=== PATIENT | female | born 1960 | race Caucasian/White ===

== ENCOUNTER 2016-08-28 05:29 | Outpatient (CLI) | payer OTHER ==
[~2016-08-28] VITALS: Ht 162.6 cm; Wt 74.7 kg
--- NOTE | ~2016-08-28 | CATH ---
Cardiac Diagnostic Report Demographics Patient Name MAISHA Knowles Gender Female Date of 1960 Age 56 year(s) Patient Number [id number] Date of Study 08/28/2016 Visit Number [id number] Room Number G6399 [place] [id number] Ht 162.56 cm Wt 74.7 kg Referring Fatuma Madison Cantu MD Primary Physician Physician Performing Fam Ballard MD Secondary Physician Physician Diagnostic Fam Ballard MD Assisting Physician Physician Interventional Physician Development Director Physician Findings and Conclusions Diagnostic Findings and Conclusion Non-obstructive CAD Normal LV function with 4+ MR Diagnostic Recommendations Will review for Mitral Clip Procedure Description The patient was brought to the diagnostic cardiac catheterization-EP laboratory in the fasting, non-sedated state. Informed consent was obtained in the written and verbal form after the risks and benefits were explained. The patient had no further questions and agreed to proceed. The planned puncture-incision site(s) were shaved and prepped with ChloraPrep and draped in the usual sterile manner. Conscious sedation, supplemental oxygen, and pain control medications were delivered by a registered nurse under physician guidance. Surface ECG rhythm, blood pressure measurement, and pulse oximetry were monitored throughout the procedure. Arterial access. The access site was infiltrated with lidocaine. The vessel was entered with the Seldinger technique. A sheath was advanced into the vessel and used for catheter placement. Venous access. The access site was infiltrated with 2% lidocaine. The vessel was entered with the Seldinger technique. A sheath was advanced into the vessel and used for catheter placement. Selective left coronary angiography. A catheter was advanced into the left coronary vessel ostium under Fluoroscopic guidance. Contrast was injected by hand. Images were obtained in multiple projections. Selective right coronary angiography. A catheter was advanced into the right coronary vessel ostium under fluoroscopic guidance. Contrast was injected by hand. Images were obtained in multiple projections. Left heart catheterization. A catheter was advanced across the aortic valve to the left ventricle under fluoroscopic guidance. Resting hemodynamics were obtained. Right heart catheterization. A [place] Luis catheter was successfully advanced to the right atrium, right ventricle, pulmonary artery, and pulmonary artery wedge position under fluoroscopic guidance. Resting hemodynamics were obtained. Measurements included pressures, arterial and venous oxygen saturation samples, and cardiac output. The [place] was removed without difficulty. Arterial and Venous hemostasis was achieved. The patient was transferred to a regular nursing floor via cart accompanied by a nurse. The patient left the laboratory in stable condition. Diagnostic Cath Status: Elective Procedure Procedure Type Diagnostic procedure:Angiography:, Right and Left Heart Cath, Coronary Angios Indications: Mitral Regurgation. The procedure was explained in detail to the patient. Risks, complications and alternative treatments were reviewed. Written consent was obtained. Medications Reviewed with Patient prior to Procedure. Angiographic Findings Dominance: Right Cardiac Arteries and Lesion Findings LMCA: Normal (0% Stenosis).The LMCA is a short, large caliber vessel. LAD: Normal (0% Stenosis).The LAD is a medium caliber vessel. The 1st Diag is a small caliber vessel. The 1st Diag appears normal. The 2nd Diag is a small caliber vessel. The 2nd Diag appears normal. The 3rd Diag is a small caliber vessel. The 3rd Diag appears normal. LCx: Normal (0% Stenosis).Large caliber vessel. The 1st ob Nishi is a small caliber vessel. The 1st ob Nishi appears normal. The 2nd ob Nishi is a large caliber vessel. The 2nd ob Nishi appears normal. RCA: Normal (0% Stenosis).Medium caliber vessel. Procedure Data Procedure Date Date: 08/28/2016Start: 08:12 AMEnd: 09:02 AM Entry Locations - Retrograde Percutaneous access was performed through the Right Femoral artery (Primary location). A 6 Fr sheath was inserted. Hemostasis was successfully obtained using Angio-Seal STS PLUS ([place]). Closure Comments: Annika placement. - Antegrade Percutaneous access was performed through the Right Femoral vein. A 7 Fr sheath was inserted. Hemostasis was successfully obtained using Manual Compression. Closure Comments: Annika. Procedure Medications Order and Administration + + + +-------+ !Time !Medication !Dosage !Route ! + + + +-------+ !08/28/2016 08:08 AM !Fentanyl !50 mcg !I.V. ! + + + +-------+ !08/28/2016 08:26 AM !Versed !1 mg ! ! + + + +-------+ !08/28/2016 08:33 AM !Oxygen !2 l/min !NC ! + + + +-------+ Devices Used - A6 Fr. BS Angled Pigtail Diag. Catheterwas used for:LV Pressures. - A6 Fr. BS JL 4 Diag. Catheterwas used for:Left coronary angiography. - A6 Fr. BS JR 4 Diag. Catheterwas used for:Right coronary angiography. Contrast Material - Isovue 35085 ml Fluoroscopy Time: Diagnostic: 6:18 minutes. Total: 6:18 minutes. Fluoroscopy Dose: Diagnostic: 457 mGy. Total: 457 mGy. Estimated Blood Loss: 3 ml. Medical History Performed Procedures and Imaging Results - No ACC stress or imaging studies were performed. Allergies - Other:(nickel). Risk Factors The patient risk factors include:last creatinine: 1.4 mg/dl and creatinine clearance: 51.65 ml/min. Admission Data Admission Date: 08/28/2016 Admission Time: 05:29 AM Admit Source: Other Insurance Payors: Private health insurance. Clinical Evaluation Leading to Procedure - There were no CAD presentation symptoms. - There were no anginal symptoms. VA LV function assessed as:Normal. Ejection Fraction - 06/11/2016 - Method: Echocardiography. EF%: 70. - 05/21/2016 - Method: Echocardiography. EF%: 70. - 08/28/2016 - Method: LV gram. EF%: 60. LVA Segment Contractility 1 - Normal 3 - Mild 5 - Severe 7 - Dyskinesis hypokinesis hypokinesis 2 - 4 - Moderate 6 - Akinesis 8 - Aneurysm Hypokinesis hypokinesis Hemodynamics Condition: Rest O2 Consumption: Estimated: 172.92Heart Rate: 72 bpm Oxygen Saturation +--------+-----+----+ +---+ + !Location!pCO2 !pO2 !% Saturation !Hgb!O2 Content ! +--------+-----+----+ +---+ + !RA ! ! !60.4 ! ! ! +--------+-----+----+ +---+ + !IVC ! ! !71.1 ! ! ! +--------+-----+----+ +---+ + !FA ! ! !91.4 ! ! ! +--------+-----+----+ +---+ + !PA ! ! !62.9 ! ! ! +--------+-----+----+ +---+ + Pressures (mmHg) +-----+ + !Site !Pressure ! +-----+ + !RA !13/9 (9) ! +-----+ + !RV !38/4 ,11 ! +-----+ + !PCW !18 (22) ! +-----+ + !PA !47/18 (29) ! +-----+ + !LV !143/1 ,12 ! +-----+ + !LV !136/4 ,11 ! +-----+ + !LV !130/3 ,10 ! +-----+ + !PCW !/44 (29) ! +-----+ + !LV !129/2 ,11 ! +-----+ + !AO !129/70 (95) ! +-----+ + !LV !130/2 ,20 ! +-----+ + Cardiac Output + + +-----+ !Time !Cardiac Output (l/min) !Use ! + + +-----+ !08/28/2016 08:41 AM !3.31 !True ! + + +-----+ !08/28/2016 08:41 AM !3.47 !True ! + + +-----+ !08/28/2016 08:42 AM !3.39 !True ! + + +-----+ !08/28/2016 08:42 AM !3.22 !True ! + + +-----+ !08/28/2016 08:43 AM !3.55 !True ! + + +-----+ Cardiac Output +-------+ + + + !Method !CO (l/min) !CI (l/min/m2) !SV (ml) ! +-------+ + + + !Gardenia !3.35 !1.9 !46.63 ! +-------+ + + + !Thermal!3.388 !1.9 !49.53 ! +-------+ + + + Valve Gradients and Areas + +--------+--------+--------+---------+ + + !Valve !Peak !Mean !Area !Index !Flow !Source ! + +--------+--------+--------+---------+ + + !Aortic !1 !0 ! ! !180.59 !Gardenia ! + +--------+--------+--------+---------+ + + !Aortic !1 !0 ! ! !182.64 !Thermal ! + +--------+--------+--------+---------+ + + Shunts Oxygen Values O2 Capacity 180.88 O2 Consumption 172.92 Flows (l/min) Qs 3.08 Vascular Resistance (dynes x sec x cm-5) + +-----+-----+----+----+---------+-------+ !CO method !TSVR !SVR !TPVR!PVR !TPVR/TSVR!PVR/SVR! + +-----+-----+----+----+---------+-------+ !Gardenia !28.27!25.74!8.67!0.04!0.31 ! ! + +-----+-----+----+----+---------+-------+ !Thermal !27.96!25.45!8.57!0.04!0.31 ! ! + +-----+-----+----+----+---------+-------+ !Qp or Qs !30.75!27.99! ! ! ! ! + +-----+-----+----+----+---------+-------+ Discharge Data Discharge Date: 08/28/2016 Hospital Status: Outpatient Signatures dtt: Elio Otto (cardio) dtd: 08/28/16 0812 Physician Self Edit
[~2016-08-28 05:29] MED LIST: ASCORBIC ACID500 MG PO; CITRACAL+D(315M1 TAB PO; EXCEDRIN EXTRA1 TAB PO; MAALOX LIQ UNIT30 ML PO; PENICILLIN V P500 MG PO; PRILOSEC OTC20 MG PO; [UNRECOGNIZED DRUG - OTHER] PO
== END 2016-08-28 12:30 | disposition disaster alternative care site (69) ==
LOC: GCAT 05:29 → GPCU 05:29 → GPOC 06:00 → GCAT 12:30 → GPOC 13:00
PROC: 4A023N8 Measurement of Cardiac Sampling and Pressure, Bilateral, Percutaneous Approach (ICD-10-PCS; principal; 2016-08-28)
PROC: B2111ZZ Fluoroscopy of Multiple Coronary Arteries using Low Osmolar Contrast (ICD-10-PCS; principal; 2016-08-28)
DX: I34.0 Nonrheumatic mitral (valve) insufficiency (principal); I34.1 Nonrheumatic mitral (valve) prolapse; K21.9 Gastro-esophageal reflux disease without esophagitis; Z78.0 Asymptomatic menopausal state; E66.9 Obesity, unspecified; Z68.25 Body mass index [BMI] 25.0-25.9, adult; Z79.82 Long term (current) use of aspirin; Z79.899 Other long term (current) drug therapy
CPT/HCPCS: C1760; J1644; J2001; J2250; J3010; J7060

== ENCOUNTER → 2016-10-16 | Outpatient (CLI) | payer OTHER ==
[~2016-10-16] MED LIST changes: +ALDACTONE25 MG PO; +AMOXICILLIN500 MG PO; +CIPRO500 MG PO; +COLACE100 MG PO; +CORDARONE,PACE200 MG PO; +ECOTRIN325 MG PO; +K-TAB 10MEQ10 MEQ PO; +LASIX40 MG PO; +LOPRESSOR25 MG PO; +NORCO 5-325 TA1 EACH PO; +PROAMATINE5 MG PO; +PROVENTIL OR V6.7 GM INH; +TOPROL XL25 MG PO; +TYLENOL325 MG PO; +VANCO 750750 MG/250 IVP; +XARELTO15 MG PO
== END | disposition disaster alternative care site (69) ==
LOC: GRAD 09:37
DX: Z01.810 Encounter for preprocedural cardiovascular examination (principal); I34.0 Nonrheumatic mitral (valve) insufficiency; I51.7 Cardiomegaly; Q67.6 Pectus excavatum

== ENCOUNTER 2017-01-12 11:21 | Inpatient (IN) | payer OTHER ==
[~2017-01-12] VITALS: Ht 162.6 cm; Wt 76.9 kg
--- NOTE | ~2017-01-12 | ENPV ---
Carotid Duplex Study Demographics Patient Name NYA FERRERA Date of Study 01/12/2017 Patient Number [id number] Gender Female Date of 1960 Age 56 Visit Number [id number] Height Accession Number [id number] Weight Room Number BSA BMI Referring Poncho Guerrero DO Interpreting Kendrick Starkey MD Physician Physician Physician Ordering Physician Poncho Guerrero [employer] Employee DO Molder Inflated Ball Robinson Holt BS, RT Conclusions Summary The right internal carotid artery has mild, 1-39%, plaque and stenosis. The right vertebral artery is present with antegrade flow. The left internal carotid artery has mild, 1-39%, plaque and stenosis. The left vertebral artery is present with antegrade flow. Diminished flow in the left vertebral artery. Procedure Type of Study: Cerebral:Carotid, Carotid Doppler Bilateral. Indications for Study:Pre op heart valve surgery. Allergies - Other:(nickel). Patient Status:Routine. Study Location:Vascular Lab. Technical Quality:Adequate visualization. Velocities are measured in cm/s ; Diameters are measured in cm Carotid Right Measurements Carotid Left Measurements + +--------+--------+ + + + +--------+ --------+ + + !Location !PSV !EDV !Angle !%Stenosis ! !Location !PSV ! EDV !Angle !%Stenosis ! + +--------+--------+ + + + +--------+ --------+ + + !Prox CCA !144 !28 !60 ! ! !Prox CCA !30 ! !60 ! ! + +--------+--------+ + + + +--------+ --------+ + + !Dist CCA !101 !28 !60 ! ! !Dist CCA !112 ! 24 !60 ! ! + +--------+--------+ + + + +--------+ --------+ + + !Prox ICA !71 !31 !60 ! ! !Prox ICA !72 ! 32 !60 ! ! + +--------+--------+ + + + +--------+ --------+ + + !Dist ICA !80 !25 !60 ! ! !Dist ICA !105 ! 42 !60 ! ! + +--------+--------+ + + + +--------+ --------+ + + !Prox ECA !108 ! !60 ! ! !Prox ECA !105 ! !60 ! ! + +--------+--------+ + + + +--------+ --------+ + + !Vertebral !20 ! !60 ! ! !Vertebral !89 ! !60 ! ! + +--------+--------+ + + + +--------+ --------+ + + !Subclavian !142 ! !60 ! ! !Subclavian !127 ! !60 ! ! + +--------+--------+ + + + +--------+ --------+ + + - There is antegrade vertebral flow noted on the right side. - There is antegrade verte bral flow noted on the left side. - Add'l Measurements:ICAPSV/CCAPSV 0.55.ICAEDV/CCAEDV 1.14. - Add'l Measurements:ICAPS V/CCAPSV 3.51. Signature dtt: DARWIN CANAS: 01/12/17 1140 Physician Self Edit
--- NOTE | ~2017-01-12 | DS ---
PATIENT'S NAME: NYA FERRERA [facility] AGE: 56 Y [address] ROOM: [address] [place], [place] [address] LOCATION: GPCU ADMIT DATE: 01/13/2017 Discharge Summary DISCHARGE DATE: 01/19/2017 FAMILY PHYSICIAN: Madison Burris MD ATTENDING PHYSICIAN: Oliver Fall HOSPITAL COURSE: The patient is a 56-year-old white female with a known mitral valve regurgitation, secondary to prolapse as well as flail segment of P2 and scallop of the posterior leaflet. She was seen in consultation with regard to undergoing repair and possible replacement. The patient consented to the procedure and on January 13, 2017 she presented to the operative suite with Dr. Fall for a mitral valve repair with quadrangular resection and annuloplasty ring. She tolerated the surgery without complication. She transferred to the ICU following surgery. She extubated on the same operative day. On postoperative day 1, the patient was found stable for transfer to PCU. Her lines therefore were discontinued and her drips were off. We were able to get rid of her Yoon catheter and chest tubes on the 2nd postoperative day. The patient worked with cardiac rehab for strengthening purposes. Respiratory personal monitored the patient as well. The patient was requiring oxygen throughout the hospital stay. The patient had no runs of atrial fibrillation. She had no healing complications. As the time for discharge grew near, we did do a trend oximetry and found that the patient required O2 at night at 2 L. In addition, Care Management worked with the patient to see if there were any needs at the time of discharge. The patient indicated that she was going to stay with her [id number] in [place] for a week or 2 until she was feeling better. She indicated that her works and would not be able to be around to help. DISCHARGE ORDERS: Included a diet as previous. Activity levels that require no pushing, pulling, or lifting heavier than 10 pounds until February 24, 2017. We asked the patient to work with cardiac rehab who will be contacting the patient for outpatient therapy. She is to utilize oxygen at 2 L at night. Appointments were made for her to follow up with Dr. Fall and Dr. Otto in 2 weeks on the same day. FINAL DIAGNOSES: Include mitral regurgitation and nocturnal hypoxia. DISCHARGE MEDICATIONS: Include: 1. Calcium with vitamin D 2 tablets daily. 2. Women's One-a-Day tablets daily. 3. Vitamin C 500 mg daily. 4. Prilosec 40 mg daily. 5. Maalox liquid 10 mL p.r.n. at h.s. 6. Excedrin Extra Strength 2 tablets q.6 h. p.r.n. 7. Pen-Vee K 500 mg 1 hour prior to dental visit. PATIENT'S NAME: NYA FERRERA [facility] AGE: 56 Y [address] ROOM: [address] [place] [address] [facility] ADMIT DATE: 01/13/2017 Discharge Summary DISCHARGE DATE: 01/19/2017 FAMILY PHYSICIAN: Madison Burris MD ATTENDING PHYSICIAN: Oliver Fall 8. Amiodarone 200 mg twice a day. 9. Ecotrin 325 mg daily. 10. Colace 100 mg twice a day. 11. Lasix 40 mg daily. 12. Potassium 20 mEq twice a day. 13. [place] 5/325 1 to 2 every 4 to 6 hours as needed. The patient verbalizes understanding of the discharge orders. The patient is discharged to her [facility] in [place] in stable condition. MADELIN WARE APRN FOR OLIVER FALL DO DLQ/modl /[id number] d: 02/04/17 0249 t: 02/05/17 1444, DISCHARGE SUMMARY
--- NOTE | ~2017-01-12 | OR ---
PATIENT'S NAME: NYA DEL REAL [facility] AGE: 56 Y [address] ROOM: [id number] [address] LOCATION: [facility] ADMIT DATE: 01/13/2017 OR/Procedure Report DISCHARGE DATE: FAMILY PHYSICIAN: Madison Burris MD ATTENDING PHYSICIAN: Oliver Isaac SURGEON: Oliver Isaac DO SIGN LANGUAGE INTERPRETER: DATE OF PROCEDURE: 01/13/2017 PREOPERATIVE DIAGNOSIS: Severe mitral valve regurgitation secondary to prolapse and flail segment of P2 scallop of posterior leaflet. POSTOPERATIVE DIAGNOSIS: Severe mitral valve regurgitation secondary to prolapse and flail segment of P2 scallop of posterior leaflet. PROCEDURE: Mitral valve repair with quadrangular resection and annuloplasty ring. BRIEF HISTORY: Ms. Del Real is a 56-year-old white female with above-noted diagnosis, has been brought to the operative suite today after informed consent was obtained for repair of her mitral valve. DESCRIPTION OF PROCEDURE: She was sterilely prepped and draped in usual fashion for sternotomy. A sternal incision was made and the sternum was divided in midline with a sternal saw. Electrocautery was used for hemostasis along the ostium, along the marrow, and sternal edges. The pericardium was opened and the pericardial well was created. Cannulation sutures were then placed in the ascending aorta. The superior vena cava and the right atrium inferior vena caval junction for bypass and cardioplegia cannulas and the patient was cannulated and connected to bypass pump without difficulty. Heparin had been given. ACT was adequate. Cross-clamp was applied. Antegrade and retrograde cardioplegia was given and the heart arrested without difficulty. The inner atrial groove was dissected and we entered the left atrium just above the right superior pulmonary vein, extended our incision inferiorly and superiorly, and placed our retractor. The mitral valve apparatus was easily visualized, the posterior leaflet and its prolapse and flail segment of P2 was easily identified. The anterior leaflet appeared normal. There was some redundancy, however, this was not significant. The quadrangular resection of the P2 segment was performed. We then reapproximated the leaflet with 4-0 Ethibond and then sized the anterior leaflet and placed a 26 ring. This was done with 2-0 Ethibond sutures. Once this was completed, the ring was secured into position. Of note, retrograde cardioplegia was given on a 10-minute basis. We then placed a right superior pulmonary vein cannula with its tip across the mitral valve into the left ventricle. We then closed the atriotomy with running 3-0 pledgeted Prolene PATIENT'S NAME: NYA DEL REAL [facility] AGE: 56 Y [address] ROOM: [place] [address] LOCATION: GICU ADMIT DATE: 01/13/2017 OR/Procedure Report DISCHARGE DATE: FAMILY PHYSICIAN: Madison Burris MD ATTENDING PHYSICIAN: Oliver Isaac and placed the patient in a deep Trendelenburg position and performed de- airing maneuvers. Once full de-airing maneuvers were undertaken under MOLINA guidance, the cross-clamp was removed. Any further de-airing maneuvers were undertaken under MOLINA guidance. There was minimal air noted with initial removal of the crossclamp. Two atrial and one ventricular temporary pacemaking wires were placed. The patient did require atrial pacing at 80. Warm blood was now given and after 500 mL dose was given, it was discontinued. The right superior pulmonary venous vent and a retrograde cannula were removed. Ventilations were initiated and we weaned from cardiopulmonary bypass without difficulty. The inferior vena caval cannula was removed as well as the superior vena caval cannula. This appropriate volume was returned from the pump to the patient and an ascending aortic cannula and a cervical root vent were removed. Protamine was now given. Copious amounts of antibiotic-infused saline was used to irrigate the sternum and mediastinum. A ventricular wire was placed and four chest tubes were placed; one in each pleural cavity, one in anterior mediastinal space, and one in posterior pericardial space. Copious amounts of antibiotic-infused saline was used to irrigate the sternum and mediastinum. Platelet-derived growth factor was infused into the sternum and mediastinum and the sternum was approximated with ZipFix system. We then irrigated the soft tissues again with antibiotic- infused saline, then closed these in layered fashion. All sponge, instrument, and needle counts were correct. The patient was transferred to the intensive care unit in stable condition. DO KATHY BAILEY/modl /[id number] CC: MD Elio Galeas MD d: 01/13/17 2123 t: 01/14/17 1450, OPERATIVE SUMMARY
--- NOTE | ~2017-01-12 | OR ---
PATIENT'S NAME: NYA FERRERA [facility] AGE: 56 Y [address] ROOM: [address] [place], [place] [address] LOCATION: GICU ADMIT DATE: 01/13/2017 OR/Procedure Report DISCHARGE DATE: FAMILY PHYSICIAN: Madison Burris MD ATTENDING PHYSICIAN: Oliver Isaac SURGEON: Nathan Ruiz MD GALLEY HAND: DATE OF PROCEDURE: 01/13/2017 PROCEDURES: 1. Right radial arterial line. 2. Right central venous catheter. 3. Transesophageal echocardiography. INDICATIONS: The patient has severe mitral regurgitation, undergoing mitral valve repair versus replacement. PROCEDURE #1: The patient was identified, time-out in the preoperative holding. She wished to proceed with the procedures. She was given 2 mg of Versed and the right arm was extended out about 90 degrees. Radial artery was easily palpated. Area was cleaned with chlorhexidine 2%. Next, using a Seldinger technique, a 20-gauge Arrow catheter was inserted with a single stick. Bright red pulsatile blood was found on return. The catheter was placed without difficulty and secured into place. Complications, none. Blood loss, none. PROCEDURE #2: After induction of general anesthesia, the patient was lying supine on the operating room table in slight Trendelenburg position. The right neck was prepped with chlorhexidine 2% and maximal sterile barriers worn at all times. Ultrasound was then used to visualize the internal jugular vein and an introducer needle placed with a single stick, returning dark nonpulsatile blood. The wire was threaded and the ultrasound was used to visualize the wire in the internal jugular vein. Next, a 9-Pashto 10 cm introducer catheter was placed over the wire. The wire removed. All ports withdrew, blood flushed easily, it was secured into place. Then, a Walton-Luis catheter was floated into position and secured at about 40 to 45 cm. Complications, none. Blood loss, none. PROCEDURE #3: After induction of anesthesia and placement of lines, the transesophageal probe was placed atraumatically. Please see saved images and report for further details. The patient showed no significant atheromatous disease in the ascending aorta or arch. There are no pericardial effusions. No PFO, ASD, or VSD, which was likely she had a preserved ejection fraction with a flail P2 segment. There is no aortic valve sclerosis, stenosis, or regurgitation, and it was trileaflet. At the conclusion of the surgery, there PATIENT'S NAME: NYA FERRERA [facility] AGE: 56 Y [address] ROOM: [address] [place], [place] [address] LOCATION: [facility] ADMIT DATE: 01/13/2017 OR/Procedure Report DISCHARGE DATE: FAMILY PHYSICIAN: Madison Burris MD ATTENDING PHYSICIAN: Oliver Isaac was trace regurgitation with the vena contracta was 0.3. I did not recall the gradients at this time, but I think it was 4. There was no perivalvular leaks or stenotic valve, and appeared to have preserved ejection fraction. NATHAN RUIZ MD JJP/modl /[id number] d: 01/13/17 1851 t: 01/19/17 1603, OPERATIVE SUMMARY
--- NOTE | ~2017-01-12 | CON ---
PATIENT'S NAME: NYA FERRERA [facility] AGE: 56 Y [address] ROOM: [place] [address] LOCATION: GICU ADMIT DATE: 01/13/2017 Consultation DISCHARGE DATE: FAMILY PHYSICIAN: Madison Burris MD ATTENDING PHYSICIAN: Oliver Isaac DATE OF CONSULTATION: 01/13/2017 REFERRING PHYSICIAN: Oliver Isaac DO Consulting Physician: Yaneth Mcdowell DPM This is a consult from Dr. Isaac for evaluation of right hallux with elongated toenail. CHIEF COMPLAINT: Right hallux, elongated onychomycotic nail, early ramiform formation causing early pressure, concern for pressure sore, 2nd toe. HISTORY OF PRESENT ILLNESS: Nya is a 56-year-old female, who had repair of mitral valve prolapse today. It was noted that on the right big toe, the nail was elongated, thick, and growing into her 2nd toe. She does not recall exactly how long that has been there, but it has been there for at least several months where the nail continues to grow extended. She had injury to that many years ago and the nail has been always a little bit strange since that time. Most of her pain obviously right now is from the heart surgery. There was discomfort in that area as well. MEDICATION LIST: Medications reviewed per chart. SOCIAL HISTORY: She is . No children. Works at [employer]. Resides in [place]. Denies smoking or alcohol. Occasional caffeine usage. REVIEW OF SYSTEMS: Related to the current past medical history and it is difficult at this point because of just having had surgery. She does have pain of course from the surgical procedure and otherwise outside of the current problems and concerns, review of systems are negative. Reviewed per chart. PAST MEDICAL HISTORY: Denies diabetes, obviously problems with her heart for which she has had a recent surgery today. FAMILY HISTORY: There are heart problems in her mom and dad. PATIENT'S NAME: NYA FERRERA [facility] AGE: 56 Y [address] ROOM: [id number] [place] [address] LOCATION: GICU ADMIT DATE: 01/13/2017 Consultation DISCHARGE DATE: FAMILY PHYSICIAN: Madison Burris MD ATTENDING PHYSICIAN: Oliver Isaac PHYSICAL EXAMINATION: GENERAL: She is somewhat alert. She just had heart surgery. She is able to respond to questions and does not appear to be anxious and just having some pain obviously from the surgery. Being controlled with pain medications. EXTREMITIES: The right foot has palpable pulses, DP and PT. Her sensation is grossly intact. Tenderness on palpation of the elongated ramiform onychomycotic hallux nail of the right foot. There is enough curvature and elongation that is causing an indentation of the 2nd toe right at the PIPJ. There are no open sores at this point or signs of infection, but obviously reactive erythema just because of pressure. Again, no open sore. Remaining nails, left and right foot looks stable and within normal limits. Some toes have a little bit of toe deformities, but nothing causing any irritations or sores at this point in time. ASSESSMENT: 1. Onychomycosis with pain, discomfort, and indentation early pre-ulcerative area, right 2nd toe. 2. Mild toe deformities without any pressure sores or reactive changes at this time. PLAN: 1. As for the toes, just keep an eye on things to make sure they do not rub on anything. There are no big issues there. 2. The indentation of the 2nd toe should resolve now that the nail is removed, a little early pre-ulcerative area, and should resolve without any problems now that the inciting pressure has been removed. 3. Debridement of the hallux nail was performed bedside manually and I did discuss with her, as well as her and the different options for treating onychomycosis after debridement. She currently is having enough going on with her heart and surgery instructions, so I suggested that she focused on that and then follow up with me at a later date to consider treatment options for the onychomycosis including rnxy-rnr-evcuomi medications versus prescription medications and possibly permanent removal or surgically remove it and apply acid so it does not grow out particularly. Want to prevent ingrowth and infection from developing with recent surgery. She will follow up with me p.r.n. Thank you, Dr. Isaac, I appreciate the consult. If you have further questions in reference to the care, please feel free to contact me. YANETH MCDOWELL DPM PATIENT'S NAME: NYA FERRERA [facility] AGE: 56 Y [address] ROOM: [place] [address] LOCATION: [facility] ADMIT DATE: 01/13/2017 Consultation DISCHARGE DATE: FAMILY PHYSICIAN: Madison Burris MD ATTENDING PHYSICIAN: Oliver Isaac/gaetano /[id number] d: 01/14/17 0112 t: 01/25/17 0625, CONSULTATION REPORT
--- NOTE | ~2017-01-12 | PUL ---
PATIENT'S NAME: NYA FERRERA [facility] AGE: 56 Y [address] ROOM: [address] [address] LOCATION: GPCU ADMIT DATE: 01/13/2017 Pulmonary DISCHARGE DATE: 01/19/2017 FAMILY PHYSICIAN: Madison Burris MD ATTENDING PHYSICIAN: Oliver Isaac NAME OF PROCEDURE: Overnight Trend Oximetry DATE OF PROCEDURE: January 18 to January 19, 2017 REASON FOR EXAM: Nocturnal Hypoxemia RESULTS: The test was performed on room air. The recording time was 9 hours, 36 minutes, and 52 seconds, with a total valid sampling time of 9 hours, 20 minutes. The highest pulse was 96, lowest pulse was 72, with a mean pulse of 79. The highest SpO2 was 94%, lowest SpO2 was 73%, with a mean SpO2 of 88.2%. The patient spent 5 hours, 11 minutes and 56 seconds with SpO2 less than 89%, representing 55.7% of the total sleep time. The desaturation event index was normal at 4.0. PHYSICIAN INTERPRETATION: The patient has evidence of significant nocturnal hypoxia and would qualify for supplemental oxygen as per Medicare criteria. MD MEMO GÓMEZ/maxine /[id number] dtt: 01/20/17 1523 , CAM WANG dtd: 01/20/17 1020
[~2017-01-12 11:21] MED LIST changes: -ALDACTONE25 MG PO; -AMOXICILLIN500 MG PO; -CIPRO500 MG PO; -COLACE100 MG PO; -CORDARONE,PACE200 MG PO; -ECOTRIN325 MG PO; -K-TAB 10MEQ10 MEQ PO; -LASIX40 MG PO; -LOPRESSOR25 MG PO; -NORCO 5-325 TA1 EACH PO; -PROAMATINE5 MG PO; -PROVENTIL OR V6.7 GM INH; -TOPROL XL25 MG PO; -TYLENOL325 MG PO; -VANCO 750750 MG/250 IVP; -XARELTO15 MG PO
[2017-01-12 11:42] LABS: HEMATOCRIT 38.9 % (33.0-46.0); HEMOGLOBIN 12.9 g/dL (10.0-15.0); MCH 30.1 pg (27.0-34.0); MCHC 33.2 gm/dL (32.0-36.5); MCV 90.9 fl (83.0-98.0); MPV 11.1 fl (9.4-12.4); RBC 4.28 M/uL (3.50-5.50); RDW-CV 13.5 % (11.9-14.6); WBC 9.2 K/uL (4.0-11.0)
[2017-01-12 11:49] LABS: INR - (THERAPEUTIC) 0.97 (0.92-1.07); PROTIME 10.2 SECONDS (9.8-11.4)
[2017-01-12 12:01] LABS: ALBUMIN 3.9 gm/dL (3.5-5.0); ANION GAP 11.1 (10.0-19.0); CALCIUM 8.7 mg/dL (8.5-10.5); CREATININE 1.1 mg/dL (0.5-1.1); POTASSIUM 4.1 mMol/L (3.7-5.1); TOTAL BILIRUBIN 0.4 mg/dL (0.0-1.5)
[2017-01-12] MEDS ORDERED: TOPROL XL25 MG PO (13:41)
[2017-01-12] MEDS ORDERED: AMOXICILLIN500 MG PO (13:44)
[2017-01-12 13:55] LABS: BILIRUBIN URINE NEGATIVE (NEGATIVE); BLOOD URINE 25 /UL (NEGATIVE); COLOR URINE STRAW (YELLOW); GLUCOSE URINE NEGATIVE (NEGATIVE); KETONE URINE NEGATIVE (NEGATIVE); LEUKOCYTES URINE NEGATIVE /UL (NEGATIVE); NITRITE URINE NEGATIVE (NEGATIVE); PROTEIN URINE NEGATIVE (NEGATIVE); SPEC GRAVITY URINE 1.015 (1.003-1.035); TURBIDITY URINE CLEAR (CLEAR); UROBILINOGEN URINE NORMAL (NORMAL)
[2017-01-12 14:03] LABS: WBC URINE 0-2 #/HPF (NEGATIVE)
[2017-01-12 14:04] LABS: AMORPHOUS URINE 1+ (NEGATIVE); BACTERIA URINE NEGATIVE (NEGATIVE); EPITHELIAL URINE 0-2 #/HPF (NEGATIVE); MUCUS URINE 1+ (NEGATIVE)
[2017-01-12 15:02] LABS: BICARBONATE 24.7 mmol/L (18.0-23.0); PCO2 34 mmHg (35-45); PO2 72 mmHg (80-90)
[2017-01-13 10:58] LABS: MCV 93.6 fl (83.0-98.0); MPV 11.2 fl (9.4-12.4); RDW-CV 13.6 % (11.9-14.6); WBC 14.9 K/uL (4.0-11.0)
[2017-01-13 11:01] LABS: HEMATOCRIT 24.8 % (33.0-46.0); MCH 30.2 pg (27.0-34.0); MCHC 32.3 gm/dL (32.0-36.5); PLATELET COUNT 108 K/uL (150-450); RBC 2.65 M/uL (3.50-5.50)
[2017-01-13 11:26] LABS: PROTIME 13.1 SECONDS (9.8-11.4); PTT 31 SECONDS (25-32)
[2017-01-13 11:41] LABS: BICARBONATE 21.3 mmol/L (18.0-23.0); PCO2 36 mmHg (35-45); PO2 118 mmHg (80-90)
[2017-01-13 11:47] LABS: ALPHA ANGLE 68 degrees (70-81); MAXIMUM CLOT FIRMNESS 54 mm (51-72)
[2017-01-13 11:49] LABS: CLOTTING TIME 62 seconds (43-82)
[2017-01-13 11:57] LABS: ANION GAP 14.1 (10.0-19.0); CALCIUM 8.5 mg/dL (8.5-10.5); POTASSIUM 4.1 mMol/L (3.7-5.1)
[2017-01-13 15:52] LABS: BICARBONATE 23.8 mmol/L (18.0-23.0); PCO2 43 mmHg (35-45); PO2 297 mmHg (80-90)
[2017-01-13 15:53] LABS: POTASSIUM 3.9 mEq/L (3.7-5.1); SODIUM 144 mEq/L (135-145)
[2017-01-13 15:55] LABS: BICARBONATE 24.7 mmol/L (18.0-23.0); PCO2 39 mmHg (35-45); PO2 218 mmHg (80-90)
[2017-01-13 15:57] LABS: POTASSIUM 4.2 mEq/L (3.7-5.1); SODIUM 143 mEq/L (135-145)
[2017-01-13 15:59] LABS: PCO2 44 mmHg (35-45); PO2 331 mmHg (80-90)
[2017-01-13 16:00] LABS: BICARBONATE 28.1 mmol/L (18.0-23.0); POTASSIUM 4.9 mEq/L (3.7-5.1); SODIUM 139 mEq/L (135-145)
[2017-01-13 16:03] LABS: BICARBONATE 22.9 mmol/L (18.0-23.0); PCO2 36 mmHg (35-45); PO2 285 mmHg (80-90); POTASSIUM 3.8 mEq/L (3.7-5.1); SODIUM 143 mEq/L (135-145)
--- NOTE | 2017-01-14 | NUR ---
Significant Event: PT ADMITTED TO ICU AT 1118. EXTUBATED AT 1700. UP TO CHAIR AT 1800. ALBUMIN GIVEN FOR LOW CI. LASIX GIVEN FOR LOW UOP. SYEDA WEANED FROM 1 MCG/KG/MIN TO 0.2 MCG/KG/MIN. REMAINS DROWSY BUT ORIENTED, FOLLOWS COMMANDS, MOVES SPONTANEOUSLY. CI 1.9-2.4 FOR THIS RN. CO >3.5 THOURHOUT SHIFT. PACER D/C'D AT 1230 AND REMAINS IN SR IN 70S. LUNGS CLEARING THROUGHOUT SHIFT. NO ATTEMPT TO EAT THIS SHIFT. PASSED BEDSIDE SWALLOW STUDY. ZOFRAN GIVEN X1 FOR NAUSEA. UOP MARGINAL, LASIX GIVEN WITH POSITIVE EFFECT. NO NEW SKIN ISSUES. UP IN CHAIR THIS SHIFT. Follow up: CONTINUE TO WEAN SYEDA AMANDA RODGERS RN
[2017-01-14 04:33] LABS: BICARBONATE 25.9 mmol/L (18.0-23.0); PCO2 47 mmHg (35-45); PO2 67 mmHg (80-90)
--- NOTE | 2017-01-14 04:44 | NUR ---
Significant Event: RESUMED CARES AT 2330. Pt is oriented x3, but still drowsy. She follows commands. [place] given q 4h for anticipated chest surgical pain. Morphine given for breakthrough pain. Chest tube output of 220. Barry gtt weaned off. Pt remains on 3L/NC. Amiodarone gtt continues at 0.5mcg/min. Follow up: Labs in am Transfer or change to PCU status.
[2017-01-14 04:51] LABS: ANION GAP 11.6 (10.0-19.0); CALCIUM 7.5 mg/dL (8.5-10.5); CREATININE 1.1 mg/dL (0.5-1.1); POTASSIUM 3.6 mMol/L (3.7-5.1)
[2017-01-14 05:06] LABS: HEMOGLOBIN 10.3 g/dL (10.0-15.0); MPV 11.6 fl (9.4-12.4); RDW-CV 13.7 % (11.9-14.6)
[2017-01-14 05:11] LABS: HEMATOCRIT 31.8 % (33.0-46.0); MCH 30.1 pg (27.0-34.0); MCHC 32.4 gm/dL (32.0-36.5); RBC 3.42 M/uL (3.50-5.50); WBC 16.8 K/uL (4.0-11.0)
--- NOTE | 2017-01-14 12:17 | NUR ---
Introduced self and CM role to Letty and her , Fab who was at bedside. Letty and Fab tell me that Letty lives at home in [place] and it is her ultimate goal to return there when able. Letty says that when she is able to dismiss from us, she will be staying with her ufmukf-xf-cyj for a few days here in town just to be closer to doctors. Her PCP is Dr.Kate Burris, Letty follows up with her on a regular basis. She does her own medications at home and will continue to do so when dismissed. Letty gets around without any assistive devices at baseline and denies the need for any DME or HHC when she leaves our facility. No other questions, needs or concerns. CM to continue to follow and assist. Plan home.
--- NOTE | 2017-01-14 14:07 | NUR ---
CONSULT RECEIVED FOR CABG DIET ED; ED WILL COMPLETED W/PT PRIOR TO D/C.
--- NOTE | 2017-01-14 15:34 | NUR ---
PT A/OX3, NO FOCAL DEFICITS, DENIES AND N/T TO EXT. NO C/O CP, SOB, ARIAS; C/O MILD SURGICAL/CT PAIN WITH NORCO 2 TABS GIVEN AROUND THE CLOCK AT ASST TIMES. PULSES 1+ DISTALLY TO BLE, DEPENDENT 1+ EDEMA TO BLE, HEART TONES DISTINCT, HR 60'S, SBP 100-120'S, AFEBRILE. LS C/D, NON-PROD COUGH, CT 1 (PLEURAL) WITH 90 MLS SANG O/P AND CT 2 (MED) WITH 60 MLS SANG O/P. AM LASIX GIVEN WITH ADEQ RESPONSE, PT +229 FOR SHIFT, NO BM, BS PRESENT, MILD BELCHING WITHOUT A BM THIS SHIFT AND MILD ORAL INTAKE. C/O SLIGHT NAUSEA NO MED GIVEN AND FAN PLACED PER PT REQUEST WITH RELIEF AND NO EMESIS HAD. IV ABX CONTINUES, ALONG WITH INS AT 2U/HR (ALL DAY) WITH D5LR AT 20MLS/HR PER PIV. PT HAS PIV X2 WITH A-LINE AND C/L. DC'D TODAY, OTHER DRSG'S C/D/I. UP IN VIEIRA X2 AND REPO IN CHAIR WITH FAIR RESPONSE PER PT AND MILD DIZZINESS WITH WALKS. PARTICIPATES WITH IS BUT HAS TO BE PROMPTED.
[2017-01-15 04:17] LABS: HEMOGLOBIN 10.2 g/dL (10.0-15.0); MCH 30.8 pg (27.0-34.0); MCHC 32.9 gm/dL (32.0-36.5); MCV 93.7 fl (83.0-98.0); MPV 11.4 fl (9.4-12.4); RBC 3.31 M/uL (3.50-5.50); RDW-CV 13.6 % (11.9-14.6)
[2017-01-15 04:28] LABS: ANION GAP 10.3 (10.0-19.0); CALCIUM 8.5 mg/dL (8.5-10.5); CREATININE 0.9 mg/dL (0.5-1.1); POTASSIUM 4.3 mMol/L (3.7-5.1)
--- NOTE | 2017-01-15 04:42 | NUR ---
Significant Event: Patient alert and oriented. Stood at chair with 2 assist. [place] given x2. Chest tubes with 40 ml out of each. VSS on 1L oxygen. Cough noted. Max temp 99.9 oral. Encourage IS and Flutter valve. Yoon patent. Pleasant and cooperative with cares. Follow up: continue to monitor
--- NOTE | 2017-01-15 17:37 | NUR ---
Significant Event: Patient A/O x3. Up with 1A and heart hugger. Slightly dizzy/lightheaded when standing. Vital signs stable on 1L. SBP 90-120's. Nauseated about 1300 and given zofran with relief. Last Desha given at 1737 for chest/right arm pain. Sternal incision open to air. Pacer wires pulled today and mediastinal drains pulled. 2 pleural bulb drains with 45 ml out each. Accu checks ACHS. Insulin gtt off since 1120. No other needs throughout the day. Follow up: Continue as per plan of care. Continue encouraging activity.
--- NOTE | 2017-01-16 06:35 | NUR ---
Significant Event: PT A/0 X3. VSS. SBP LOW 100'S, HR 70'S. LOW GRADE TEMPS. 2L PER NC. DENIES PAIN. ACHS. IV IN RT HAND AND LT WRIST SL. 1 ASSIST TO BATHROOM VOID X2. BOWEL SOUNDS ACTIVE. 2 CHEST TUBE DRAINS WITH 40ML OUT. ENCOURAGE PT TO COUGH AND DEEP BREATHE. Follow up: FOLLOW CARE PLAN.
--- NOTE | 2017-01-16 16:05 | NUR ---
Significant Event: Patient A/O x 3. Up with 1A. Sternal precautions. Vital signs stable on 2L for most of the day. Pleural drains pulled and occlusive drsg C/D/I. Last given 2 [place] around 1345. Nauseated around lunch time, but mist twist helped resolve it. Ambulated three times in hallways today. Activity tolerance has significantly improved from yesterday. ACHS accu checks. Need daily standing weights. Follow up: Continue as per plan of care. 2 view chest xray in A.M.
--- NOTE | 2017-01-17 05:03 | NUR ---
Significant Event: NORCO 2 TABS GIVEN X2 FOR PAIN. UP WITH STANDBY ASSIST TO BR AND IN VIEIRA X1. O2 UP TO 4L FOR A SHORT TIME AND THEN BACK TO 2L. WEAK COUGH NOTED. GOOD UO. SLEEPING WELL FOR MOST OF NIGHT. Follow up:
--- NOTE | 2017-01-17 15:36 | NUR ---
Significant Event:VSS.RA.AMBULATED IN HALLS. C/O MID CHEST INCISION PAIN. NORCO GIVEN THIS AM WITH RELIEF. STAND BY ASSIST. PLANS TO DC TO HOME TOMORROW. Follow up:WILL CONTINUE TO MONITOR PER PLAN OF CARE.
[2017-01-18 03:45] LABS: BASOPHIL # 0.1 K/uL (0.0-0.2); BASOPHIL % 0.8 %; EOSINOPHIL # 0.7 K/uL (0.0-0.5); EOSINOPHIL % 5.1 %; HEMATOCRIT 32.3 % (33.0-46.0); HEMOGLOBIN 10.4 g/dL (10.0-15.0); IMMATURE GRANULOCYTE # 0.1 K/uL (0.0-0.3); IMMATURE GRANULOCYTE % 0.5 %; LYMPHOCYTE # 2.9 K/uL (0.8-4.0); LYMPHOCYTE % 21.7 %; MCHC 32.2 gm/dL (32.0-36.5); MCV 93.1 fl (83.0-98.0); MONOCYTE % 7.9 %; MPV 10.6 fl (9.4-12.4); NEUTROPHIL # (ANC) 8.5 K/uL (1.8-7.8); NRBC % 0 /100WBC (0-0.00); RBC 3.47 M/uL (3.50-5.50); RDW-CV 13.3 % (11.9-14.6); WBC 13.2 K/uL (4.0-11.0)
[2017-01-18 03:48] LABS: PLATELET COUNT 142 K/uL (150-450)
[2017-01-18 04:05] LABS: ALBUMIN 3.1 gm/dL (3.5-5.0); ANION GAP 11.5 (10.0-19.0); CALCIUM 8.6 mg/dL (8.5-10.5); CREATININE 0.9 mg/dL (0.5-1.1); PHOSPHORUS 3.6 mg/dL (2.5-4.9); POTASSIUM 4.5 mMol/L (3.7-5.1)
--- NOTE | 2017-01-18 05:28 | NUR ---
Significant Event: 3 LAPS IN VIEIRA. O2 RE-INITIATED FOR O2 87-90% ON ROOM AIR. O2 AT 1L WAS 89-90%. DURING THE 1ST LAP, HER O2 ON ROOM AIR WAS GREATER THAN 90%. BY LAP 2, SHE NEEDED ONLY 0.5L OF O2. SOON SHE LAYED BACK IN BED, SHE NEEDED 2L. GETS UP WITH MINIMAL ASSIST. MILK OF MAG GIVEN X1 WITHOUT ANY RESULTS. BOWEL SOUNDS MORE ACTIVE AFTER MILK OF MAG. NORCO 2 TABS GIVEN X1. Follow up:
--- NOTE | 2017-01-18 14:56 | NUR ---
A-SCREENED D/T LOS S/P CABG. PLAN TO D/C TOMORROW, PER PT REPORT HT: 64 IN. WT: 77.2 KG. BMI: 29.1 LABS REVIEWED; PREALB WAS 28.0 PRIOR TO SURGERY. BS WNL DIET RX: DIABETIC. PO INTAKE HAS BEEN POOR-FAIR, BUT IMPROVED TODAY TO 75-100%. VISITED W/PT RE: APPETITE, ETC. PT REPORTS HER APPETITE IS IMPROVING. DISCUSSED SUPPLEMENT OPTIONS; PT WOULD LIKE TO TRY ENSURE TO SEE IF SHE LIKES IT PRIOR TO D/C. WENT OVER IMPORTANCE OF GOOD NUTRITION FOR HEALING, AND WAYS TO INCLUDE MORE PROTEIN INTO HER DAY. POST-CABG DIET ED ALSO COMPLETED W/PT DURING OUR VISIT. PT ASKED MANY QUESTIONS. EST NUTR NEEDS: [id number] KCALS (25-30 KCALS/KG) 77-116 GM PROTEIN (1.0-1.5 GM/KG) 1 ML FLUID/KCAL D-AT NUTRITION RISK W/INCREASED NUTRIENT NEEDS R/T HEALING AEB RECENT CABG I-1)ENSURE ENLIVE TID. GAVE PT COUPONS TO USE UPON D/C 2)PROVIDED WRITTEN INFORMATION FOR HEART HEALTH[facility], ALONG WITH RD CONTACT INFO. ENCOURAGED TO CALL WITH ANY QUESTIONS M/E-GOAL: PO INTAKE >/=75% FOR DURATION OF ADMIT 1)F/U PO INTAKE, SUPPLEMENT, AND POC IN 4-5 DAYS 2)ASSIST NEEDED
--- NOTE | 2017-01-18 19:36 | NUR ---
Significant Event: Alert and oriented X 3. O2 at 2 L by nasal cannula. SBP 100's and 112's. HR 80's. Heart hugger on at all times. Sternal incision approximated. 4 tube sites, 1 w/gauze d/t slightly being open and rubbing on bra. ACHS accu checks 110, 116 and 114 with no correction needed. [place] given X 3 last given at 1856. Up with SBA. Peripheral IV to right hand, slightly sluggish. Large bowel movement this shift. Pleasant and cooperative with cares. Follow up:
--- NOTE | 2017-01-19 04:18 | NUR ---
Significant Event: A/O X 3, COOPERATIVE WITH CARES. AMBULATES STAND BY ASSIST. SBP'S UPPER 90'S TO 100'S. HR 80'S. MID STERNUM INCISION OPE WITH NO COMPLICATIONS. 2 NORCO GIVEN X 1 WITH RELIEF NOTED. CALLED DR. FALL ABOUT 02 SATS AND WAS PUT ON OVERNIGHT TREND OX BECAUSE MOST LIKELY SHE WILL BE DISCHARGED TODAY. Follow up:
[2017-01-19] MEDS ORDERED: CORDARONE,PACE200 MG PO (10:48)
[2017-01-19] MEDS ORDERED: ECOTRIN325 MG PO (10:50)
[2017-01-19] MEDS ORDERED: LASIX40 MG PO (10:52)
[2017-01-19] MEDS ORDERED: COLACE100 MG PO (10:52)
[2017-01-19] MEDS ORDERED: K-TAB 10MEQ10 MEQ PO (10:53)
[2017-01-19] MEDS ORDERED: NORCO 5-325 TA1 EACH PO (10:54)
--- NOTE | 2017-01-19 12:08 | NUR ---
1000 Reviewed Johnnessa' chart, dismissal orders have been filed out and she is planning on dismissing today. No CM needs from nursing standpoint. Plan home today.
--- NOTE | 2017-01-19 16:17 | NUR ---
Significant Event: A&O. VSS, AFEBRILE, SATS 92% ON ROOM AIR, BUT FAILED OVERNIGHT TREND OX. HOME 02 ARRANGED FOR 2L AT HS. COMPLAINT OF SOME NAUSEA AFTER BREAKFAST, REFUSED ZOFRAN, GAVE DIET SPRITE & CRACKERS. STERNAL INCISION WELL APPROXIMATED, NO SIGNS OF INFECTION. IV REMOVED FROM R)HAND. L)ANDTERIOR FOREARM STILL RED/EDEMTOUS FROM OLD IV INFILTRATION, LESS PAINFUL TODAY PER PT. DISCHARGE INSTRUCTIONS DISCUSSED, VERBALIZED UNDERSTANDING. NORCO GIVEN UPON DC. ESCORTED TO VEHICLE BY MAINTENANCE TECHNICIAN, SISTER IN LAW TO TRANSPORT. BELONGINGS WITH PT.
== END 2017-01-19 13:55 | disposition disaster alternative care site (69) | DRG 273 ==
LOC: GRAD 11:21 → EDSTATUS 01-13 → GICU 01-13 05:09 → GPCU 01-14 17:49
PROVIDERS: ADMIT Thoracic Surgery (Cardiothoracic Vascular Surgery)
PROC: 02U Heart and Great Vessels, Supplement (ICD-10-PCS; principal; 2017-01-13)
PROC: 3E08317 Introduction of Other Thrombolytic into Heart, Percutaneous Approach (ICD-10-PCS; principal; 2017-01-13)
PROC: B245ZZ4 Ultrasonography of Left Heart, Transesophageal (ICD-10-PCS; principal; 2017-01-13)
DX: I34.0 Nonrheumatic mitral (valve) insufficiency (principal); J96.01 Acute respiratory failure with hypoxia; B35.1 Tinea unguium; I34.1 Nonrheumatic mitral (valve) prolapse; Z95.1 Presence of aortocoronary bypass graft; Z78.9 Other specified health status
CPT/HCPCS: A9270; J0282; J0690; J1650; J1885; J1940; J2250; J2270; J2370; J2405; J3475; J3480; J3490; J7030; J7040; J7050; J7060; J7121; P9045

== ENCOUNTER 2017-01-31 14:57 | Inpatient (IN) | payer OTHER ==
[~2017-01-31] VITALS: Ht 162.6 cm; Wt 72.3 kg
--- NOTE | ~2017-01-31 | ECHO ---
Transthoracic Echocardiography Report (TTE) Demographics Patient Name NYA FERRERA Date of Study 02/01/2017 Patient Number [id number] Visit Number [id number] Date of 1960 Room Number G6213 Accession Number [id number] Gender Female Age 56 year(s) Referring Poncho Guerrero Lcac Radar Operator/Navigator Aaron Woodson RVT Physician DO Fatuma Cantu MD Physician Interpreting Fam Ballard MD Campaign Manager Physician Supervising Ordering Physician Poncho Guerrero MD/MLP DO Nurse Stress Director Of Casino Conclusions Summary The estimated left ventricular ejection fraction is 40-45%. Mild concentric left ventricular hypertrophy. Mildly reduced right ventricular function. IVC not visualized due to poor subcostal window. History of mitral valve repair with quadrangular resection and annuloplasty ring (01/13/2017). Mean gradient is 3 mmHg. Trivial mitral Mild tricuspid regurgitation by color Doppler. Procedure Type of Study TTE procedure:2D Echocardiogram. Procedure Date Date: 02/01/2017 Start: 08:09 AM Study Location: Inpatient Portable Technical Quality: Adequate visualization Indications:Dyspnea/SOB. Appropriate Use Criteria: 9 Patient Status: Routine HR: 105 bpm BP: 91/57 mmHg Allergies - Other:(nickel). M-Mode/2D Measurements LV Diastolic Dimension: 4.08 cm LV Systolic Dimension: 3.03 cm LV Septum Diastolic: 1.67 cm LV PW Diastolic: 1.29 cm AO Root Dimension: 2.4 cm Cardiac Output: 4.91 l/min LA Dimension: 4.1 cm RV Diastolic Dimension: 2.81 cm LVOT: 1.9 cm LVOT VTI: 16.5 cm RV Base: 2.66 cm LV Stroke volume: 46.76 ml RV Mid: 2.64 cm RV Length: 5.84 cm TAPSE: 0.6 cm TDI-S': 8.8 cm/s Doppler Measurements AV Peak Velocity: 1.5 m/s MV Peak E-Wave: 1.19 m/s AV Peak Gradient: 9 mmHg MV Peak A-Wave: 1.33 m/s AV Mean Gradient: 6 mmHg MV E/A Ratio: 0.89 LVOT Peak Velocity: 1.14 m/s MV P1/2t: 73 msec TR Gradient:44.89 mmHg PV Peak Velocity: 0.79 m/s PV Peak Gradient: 2.46 mmHg E' Septal Velocity: 0.03 m/s A' Septal Velocity: 0.06 m/s E' Lateral Velocity: 0.06 m/s A' Lateral Velocity: 0.08 m/s Findings Left Ventricle Mild concentric left ventricular hypertrophy. D-shaped septum Right Ventricle Mildly reduced right ventricular function. Left Atrium The left atrium is mildly dilated. Right Atrium IVC not visualized due to poor subcostal window. Mitral Valve History of mitral valve repair with quadrangular resection and annuloplasty ring (01/13/2017). Mean gradient is 3 mmHg. Trivial mitral regurgitation by color Doppler. Aortic Valve Normal aortic valve structure and function. Tricuspid Valve Moderate tricuspid regurgitation by color Doppler. There is moderate pulmonary hypertension. The pulmonary pressure (RVSP) is 45 mmHg. Pulmonic Valve Normal pulmonic valve structure and function. Pericardial Effusion No evidence of pericardial effusion. Miscellaneous Visualized portions of the aortic root and ascending aorta appear normal in size. Pleural Effusion No evidence of pleural effusion. Contractility Score LV regional wall motion:(0-Non visualized 1-Normal 2-Hypokinesis 3-Akinesis 4-Dyskinesis 5-Aneurysm) Signature dtt: Elio Otto (cardio) dtd: 02/01/17 0809 Physician Self Edit
--- NOTE | ~2017-01-31 | OR ---
PATIENT'S NAME: NYA DEL REAL [facility] AGE: 56 Y [address] ROOM: [address] [place], [place] [address] LOCATION: GICU ADMIT DATE: 01/31/2017 OR/Procedure Report DISCHARGE DATE: FAMILY PHYSICIAN: Madison Burris MD ATTENDING PHYSICIAN: Oliver Isaac SURGEON: Oliver Isaac DO ZYGLO TECHNICIAN: DATE OF PROCEDURE: 01/31/2017 PREOPERATIVE DIAGNOSES: 1. Left pleural effusion in the face of saddle pulmonary embolus. 2. Difficult peripheral access. POSTOPERATIVE DIAGNOSES: 1. Left pleural effusion in the face of saddle pulmonary embolus. 2. Difficult peripheral access. PROCEDURES PERFORMED: 1. Placement of left 14-Guamanian chest tube. 2. Placement of left subclavian vein-based triple-lumen catheter. BRIEF HISTORY: Mrs. Del Real is a 56-year-old white female, 19 days postoperative from her mitral valve repair. She presented through the ER this evening with complaints of increasing respiratory distress. CAT scan has shown pulmonary embolus as well as left pleural effusion with left lower lobe consolidation. She is in need of a heparin drip; however, I want to drain the effusion as well. Therefore, ultrasound was used to identify the left pleural space and effusion. This catia was then sterilely prepped and draped. 1% lidocaine was used to infiltrate the area and the deeper tissues. An access needle was placed into the pleural space showing serous fluid. Guidewire was placed through the introducer needle, and the needle was withdrawn. Soft tissue dilator was placed over the guidewire and withdrawn. Then, the 14- Guamanian chest tube was placed over the guidewire, and the guidewire was withdrawn. Chest tube was placed to suction. A small aliquot of fluid was obtained for culture. It was secured in position with a 2-0 nylon, and sterile dressings applied. We then sterilely prepped and draped the left infraclavicular space and placed the patient into a Trendelenburg position. The subclavian vein was then accessed without difficulty, and a guidewire placed through the vein without resistance. A stab incision was made at the base of the needle, and the needle was withdrawn. Soft tissue dilator was placed over the guidewire and withdrawn, and then the triple-lumen catheter was placed over the guidewire, and the guidewire was withdrawn. Each lumen aspirated easily for dark venous blood and was flushed with sterile saline. It was secured in position with a 2-0 silk, and a sterile dressing was applied. The patient tolerated the procedure well. A chest x-ray is pending PATIENT'S NAME: NYA DEL REAL [facility] AGE: 56 Y [address] ROOM: [place] [address] LOCATION: GICU ADMIT DATE: 01/31/2017 OR/Procedure Report DISCHARGE DATE: FAMILY PHYSICIAN: Madison Burris MD ATTENDING PHYSICIAN: Oliver Isaac for placement. DO KATHY BAILEY/gaetano /[id number] d: 02/01/17 1240 t: 02/01/17 2301, OPERATIVE SUMMARY
--- NOTE | ~2017-01-31 | DS ---
PATIENT'S NAME: NYA FERRERA [facility] AGE: 56 Y [address] ROOM: [id number] [place], [place] [address] LOCATION: GPCU ADMIT DATE: 01/31/2017 Discharge Summary DISCHARGE DATE: 02/11/2017 FAMILY PHYSICIAN: Madison Burris MD ATTENDING PHYSICIAN: Oliver Fall HISTORY OF PRESENT ILLNESS: The patient is a 56-year-old white female who was 19 days out from a mitral valve repair with Dr. Fall and was home recuperating when she developed severe shortness of breath, chills, and diarrhea. She presented to the emergency department and was thoroughly evaluated. A CT scan of the chest demonstrated a significant left pleural effusion as well as bilateral saddle PE. A chest tube was placed to the left chest. A heparin drip was started for the PE. The patient admitted to the intensive care unit. Her white blood cell count was over 36,000. She was started on antibiotic therapy consisting of Levaquin and vancomycin. She was also started on Levophed and vasopressin shortly after her admission. Her respiratory function progressed, and she was in acute respiratory failure and did require ventilation. She was started on tube feeds with Jevity. A Yoon had been placed. PT and OT evaluated the patient while on the ICU. The patient did receive a unit of packed cells. She then transitioned into EPO and iron throughout the stay. Eventually, the patient's white blood cell count improved. The heparin was discontinued in lieu of beginning the Xarelto for treatment for the bilateral PE. The patient is still on pressor agents and had to start ProAmatine in an effort to discontinue the pressor agents. The patient's situation improved. She continued to work with PT, OT, and cardiac rehab. She was transferred to the progressive care floor when her pressor agents were discontinued. Her Yoon was discontinued. The patient made progress with her strength and her overall status. In discussing with the patient regarding her discharge needs, she did indicate that she would go back home to her cwrizz-te-mpu's home here in [place]. Home health care was arranged as well. The patient was found stable to discharge to home on 02/11/2017. DISCHARGE ORDERS: Include a diet with no restrictions. Activity levels which require that she resume her strict sternal precautions through February 24, 2017. The patient was asked to follow up with Dr. Fall in 2 weeks as [address] as Dr. Otto in 2 weeks. The patient will not require any dressing changes. FINAL DIAGNOSES: Include: 1. Bilateral pulmonary emboli with bilateral pneumonia. 2. Status post mitral valve repair. 3. Acute respiratory failure requiring intubation secondary to pulmonary PATIENT'S NAME: NYA FERRERA [facility] AGE: 56 Y [address] ROOM: [place] [address] LOCATION: GPCU ADMIT DATE: 01/31/2017 Discharge Summary DISCHARGE DATE: 02/11/2017 FAMILY PHYSICIAN: Madison Burris MD ATTENDING PHYSICIAN: Oliver Fall embolism/sepsis. 4. Left chest tube placement and discontinuation for a pleural effusion. DISCHARGE MEDICATIONS: Include: 1. Calcium with vitamin D. 2. Women's daily vitamin. 3. Vitamin C 500 daily. 4. Prilosec 40 mg p.r.n. 5. Maalox p.r.n. 6. Excedrin Extra Strength 2 tablets q.6 hours p.r.n. 7. Ecotrin 325 mg daily. 8. Colace 100 mg twice a day. 9. Lasix 40 mg daily. 10. Potassium chloride 20 mEq. 11. [place] 5/325 one to two every 4 to 6 hours as needed. 12. Midodrine 10 mg t.i.d. 13. Xarelto 15 mg twice a day. 14. Proventil 2 puffs per inhalation q.i.d. 15. Tylenol 650 mg q.4 hours p.r.n. mild pain. 16. Cipro 500 mg twice a day. MADELIN WARE APRN FOR OLIVER FALL, DLQ/modl /[id number] d: 02/26/17 1649 t: 03/01/17 1410, DISCHARGE SUMMARY
--- NOTE | ~2017-01-31 | HP ---
PATIENT'S NAME: NYA FERRERA [facility] AGE: 56 Y [address] ROOM: [place] [address] LOCATION: GPCU ADMIT DATE: 01/31/2017 History & Physical DISCHARGE DATE: 02/11/2017 FAMILY PHYSICIAN: Madison Burris MD ATTENDING PHYSICIAN: Oliver Fall DATE OF SERVICE: 01/31/2017 HISTORY OF PRESENT ILLNESS: The patient is a 56-year-old white female who is status post 19 days from a mitral valve replacement with quadrangular resection performed by Dr. Fall. The patient was home convalescing when she developed increased shortness of breath, lack of appetite, sudden nausea, chills, and diarrhea. She was taken to the emergency department by her [id number]-xe-ulr. Emergency personnel found her to be hypoxic and started her on oxygen. She began to have some increased swelling of her legs. She required BiPAP. A chest x-ray revealed a significant large pleural effusion and was also suspicious for possible bilateral pulmonary emboli. Dr. Fall was called to see the patient in the emergency department. A 14-Vincentian chest tube was placed to the left chest. The patient was started on heparin drip for possible PE and admitted to the ICU. Upon admission, the patient's white blood cell count was found to be at 36.7 with a differential of 32.7. The patient was started on antibiotics via the pneumonia protocol. PAST MEDICAL HISTORY: Illnesses: Mitral valve regurgitation, severe. PAST SURGICAL HISTORY: Foot surgery, mitral valve repair, tonsillectomy. SOCIAL HISTORY: The patient is . She and her do not have children. She is a never smoker, nonalcohol consumer. She works at [employer] and has for many years. FAMILY HISTORY: Father with congestive heart failure. ALLERGIES: CEFEPIME. CURRENT MEDICATIONS: As per medication administration record. REVIEW OF SYSTEMS: As per HPI. PHYSICAL EXAMINATION: VITAL SIGNS: Blood pressure is 122/90, heart rate is 117, respiratory rate PATIENT'S NAME: NYA FERRERA [facility] AGE: 56 Y [address] ROOM: [place] [address] LOCATION: GPCU ADMIT DATE: 01/31/2017 History & Physical DISCHARGE DATE: 02/11/2017 FAMILY PHYSICIAN: Madison Burris MD ATTENDING PHYSICIAN: Oliver Fall 28, temperature 99.3, and O2 saturation 85% on room air. A 14-Vincentian chest tube was placed by Dr. Fall. IMPRESSION: 1. Acute respiratory failure. 2. Leukocytosis. 3. Status post mitral valve repair. RECOMMENDATION AND PLAN: We will rehydrate. We will place Yoon to gravity. Also will need some diuresis with Bumex IV push daily. CT scan of the chest with PE protocol right away. Labs ordered for the a.m. Further recommendations to follow. MADELIN WARE APRN FOR OLIVER FALL, DO BARNESQ/modl /[id number] D: [id number] T: [id number] HISTORY & PHYSICAL
--- NOTE | ~2017-01-31 | ER ---
PATIENT'S NAME: NYA DEL REAL [facility] AGE: 56 Y [address] ROOM: [place] [address] LOCATION: [facility] ADMIT DATE: 01/31/2017 ER/Outpatient Report DISCHARGE DATE: FAMILY PHYSICIAN: Madison Burris MD ATTENDING PHYSICIAN: Oliver Isaac CHIEF COMPLAINT: General weakness and fatigue after mitral valve repair. HISTORY OF PRESENT ILLNESS: Ms. Del Real notes that she started to feel poorly last night and has been progressive throughout the day. Her dxribd-zo-opm called Dr. Isaac, who performed recent surgery for mitral valve leaflet repair, and she was directed to come in. She has had some vomiting with this. She did come in by ambulance. She was found to be hypoxic and was started on oxygen. She notes worsening swelling of her legs than she had had before. She denies any fevers, but has had some chills. She denies any cough. She does have persistent chest discomfort, although it is not particularly painful, and she feels she is progressing well from a healing standpoint otherwise. She has no other focal findings or history available. She does note she had some issues with oxygen while in the hospital and was recently discharged approximately 12 days ago. She has not had a followup appointment for same. PAST MEDICAL HISTORY: As documented on the record and have been reviewed by me. SOCIAL HISTORY: As documented on the record and have been reviewed by me. MEDICATIONS: As documented on the record and have been reviewed by me. ALLERGIES: DOCUMENTED ON THE RECORD AND HAVE BEEN REVIEWED BY ME. REVIEW OF SYSTEMS: All systems were reviewed and negative except as noted in the HPI. PHYSICAL EXAMINATION: VITAL SIGNS: Blood pressure 122/90, pulse is 117, respiratory rate is 28, temperature is 99.3, and SpO2 is 85% on room air. Pain is 0/10 or minimal. NEUROLOGIC: The patient appears tired, but is awake. She is interactive. GCS is 15. No obvious asymmetry, very weak throughout. HEENT: Normocephalic and atraumatic. Eyes are PERRL. Oropharynx is clear. NECK: Supple. Trachea is midline. PATIENT'S NAME: NYA DEL REAL [facility] AGE: 56 Y [address] ROOM: [place] [id number] LOCATION: [facility] ADMIT DATE: 01/31/2017 ER/Outpatient Report DISCHARGE DATE: FAMILY PHYSICIAN: Madison Burris MD ATTENDING PHYSICIAN: Oliver Isaac CHEST: Heart has regular tachycardia, unclear rhythm on the monitor, likely sinus tach. The patient does have a marked murmur, appears to be systolic ejection best heard at the left upper inner space. RESPIRATORY: Lungs are with some crackles. Respiratory effort is poor. She is tachypneic. Very poor exam overall. ABDOMEN: Nondistended. No rebound, guarding, or masses. BACK: Normal to inspection. There is a chest binder in place around the upper back and chest. EXTREMITIES: Warm and well perfused. There is marked edema to the knees and mid thighs bilaterally. No deformities. SKIN: Clean, dry, intact, and warm. Chest wall appears to be healing well. LABORATORY DATA AND X-RAYS: Chest x-ray shows bilateral pleural effusions, grossly stable with more fullness of the left hilum compared to prior study. CBC: White count is 36.7 with a differential of 32.7. ANC: Segs are 30.5, bands of 2.2, monos 1.1, baso 0.4, metas 0.4, ESR is 48, INR is 1. Procalcitonin 0.25. CRP is 23.3. Blood gas; pH is 7.52, pCO2 is 25, and pO2 is 58 on 3 L nasal cannula. Lactate is 3.1. CMS: Electrolytes are grossly unremarkable. CO2 is 21, otherwise. Creatinine is 1.3. GFR is 46. LFTs, slight elevation of AST at 85. Bilirubin slightly elevated at 1.8. CK-MB is 3.0. Troponin I is undetectable. ProBNP is 11,899. EKG appears to be sinus tachycardia. No comparison post surgery. IMPRESSION: 1. Presumed severe sepsis versus heart failure. 2. Mild azotemia. 3. Elevated bilirubin with mild transaminitis. EMERGENCY DEPARTMENT COURSE: The patient was seen and evaluated as above. She was found to be markedly hypoxic with increased work of breathing. She was started on supplemental O2 and up titrated to BiPAP relatively quickly. This helped to improve her work of breathing. This also improved her oxygenation. EKG is not consistent with ischemia. Quick bedside ultrasound by myself did not reveal any obvious pericardial effusions, but it was a poor quality study overall, difficult to visualize adequately. Her hemodynamics began to downtrend after a 250 mL bolus and thus extra fluids were stopped. With her white count and inflammatory markers being elevated with presumed possible pneumonia, one has to consider severe sepsis as her presentation. She was given vancomycin and cefepime empirically. Volume resuscitation was not aggressive secondary to her presumed heart failure as well. Dr. Isaac evaluated the patient in the ER and we will admit her to the ICU. PATIENT'S NAME: NYA DEL REAL [facility] AGE: 56 Y [address] ROOM: [place] [address] LOCATION: [facility] ADMIT DATE: 01/31/2017 ER/Outpatient Report DISCHARGE DATE: FAMILY PHYSICIAN: Madison Burris MD ATTENDING PHYSICIAN: Oliver Isaac CRITICAL CARE TIME: 48 minutes. Critical care time was spent on this patient. Time is warranted for severe hypoxia and downtrending blood pressures. Critical care time was spent in patient evaluation, patient reevaluation, ordering and interpreting arterial blood gas, chest x-ray, EKG, as well as labs. I also ordered BiPAP. I directed fluid management. I initiated antibiotics for severe sepsis and I did consult with Dr. Isaac and arranged an ICU bed for this patient. MD JERRELL GIBBS/gaetano /[id number] d: 01/31/171919 t: 02/16/17 0910, OUTPATIENT REPORT
[~2017-01-31 14:57] MED LIST changes: +AMOXICILLIN500 MG PO; +COLACE100 MG PO; +CORDARONE,PACE200 MG PO; +ECOTRIN325 MG PO; +K-TAB 10MEQ10 MEQ PO; +LASIX40 MG PO; +NORCO 5-325 TA1 EACH PO; +TOPROL XL25 MG PO
[2017-01-31 15:29] LABS: LACTATE 3.1 mEq/L (0.50-1.60); PO2 58 mmHg (80-90)
[2017-01-31 15:30] LABS: BICARBONATE 20.4 mmol/L (18.0-23.0); PCO2 25 mmHg (35-45)
[2017-01-31 15:33] LABS: HEMATOCRIT 32.7 % (33.0-46.0); HEMOGLOBIN 10.6 g/dL (10.0-15.0); MCH 29.7 pg (27.0-34.0); MCHC 32.4 gm/dL (32.0-36.5); MCV 91.6 fl (83.0-98.0); MPV 10.2 fl (9.4-12.4); RBC 3.57 M/uL (3.50-5.50); RDW-CV 13.9 % (11.9-14.6)
[2017-01-31 15:37] LABS: PLATELET COUNT 406 K/uL (150-450); WBC 36.7 K/uL (4.0-11.0)
[2017-01-31 15:40] LABS: INR - (THERAPEUTIC) 1.09 (0.92-1.07); PROTIME 11.5 SECONDS (9.8-11.4)
[2017-01-31 15:41] LABS: PTT 22 SECONDS (25-32)
[2017-01-31 15:53] LABS: ALK PHOS 128 IU/L (33-138); ALT 41 IU/L (12-78); ANION GAP 15.5 (10.0-19.0); AST 85 IU/L (10-40); BLOOD UREA NITROGEN 22 mg/dL (6-24); CALCIUM 8.2 mg/dL (8.5-10.5); CHLORIDE 104 mMol/L (96-110); CO2 21 mMol/L (22-32); CREATININE 1.3 mg/dL (0.5-1.1); POTASSIUM 3.5 mMol/L (3.7-5.1); SODIUM 137 mMol/L (135-145); TOTAL PROTEIN 7.2 g/dL (6.0-8.4)
[2017-01-31 15:54] LABS: TOTAL BILIRUBIN 1.8 mg/dL (0.0-1.5)
[2017-01-31 15:58] LABS: ABSOLUTE NEUTROPHIL CT (ANC) 32.7 K/uL (1.8-7.8); BANDED NEUTROPHIL # 2.2 K/uL (0.0-0.1); BANDED NEUTROPHILS % 6 %; LYMPHOCYTE # 3.3 K/uL (0.8-4.0); LYMPHOCYTE % 9 %; MONOCYTE # 1.1 K/uL (0.0-1.0); SEGMENTED NEUTROPHIL # 30.5 K/uL (1.8-7.8); SEGMENTED NEUTROPHIL % 83 %
[2017-01-31 19:12] LABS: PCO2 30 mmHg (35-45)
[2017-01-31 19:13] LABS: PO2 75 mmHg (80-90)
[2017-02-01 04:28] LABS: BICARBONATE 23.9 mmol/L (18.0-23.0); PCO2 28 mmHg (35-45); PO2 63 mmHg (80-90)
[2017-02-01 04:46] LABS: ALBUMIN 2.6 gm/dL (3.5-5.0); ANION GAP 14.5 (10.0-19.0); CREATININE 1.3 mg/dL (0.5-1.1); POTASSIUM 3.5 mMol/L (3.7-5.1); TOTAL BILIRUBIN 1.9 mg/dL (0.0-1.5); TOTAL PROTEIN 5.5 g/dL (6.0-8.4)
[2017-02-01 04:48] LABS: CALCIUM 7.3 mg/dL (8.5-10.5)
[2017-02-01 04:50] LABS: MCH 28.8 pg (27.0-34.0); MPV 10.4 fl (9.4-12.4); RBC 2.78 M/uL (3.50-5.50)
[2017-02-01 04:54] LABS: HEMATOCRIT 25.3 % (33.0-46.0); MCHC 31.6 gm/dL (32.0-36.5); PLATELET COUNT 218 K/uL (150-450); WBC 17.1 K/uL (4.0-11.0)
[2017-02-01 05:41] LABS: ABSOLUTE NEUTROPHIL CT (ANC) 14.5 K/uL (1.8-7.8); BANDED NEUTROPHIL # 3.1 K/uL (0.0-0.1); BANDED NEUTROPHILS % 18 %; LYMPHOCYTE # 2.4 K/uL (0.8-4.0); LYMPHOCYTE % 14 %; MONOCYTE # 0.2 K/uL (0.0-1.0); SEGMENTED NEUTROPHIL # 11.5 K/uL (1.8-7.8); SEGMENTED NEUTROPHIL % 67 %
[2017-02-01 12:25] LABS: HEMATOCRIT 23.5 % (33.0-46.0); HEMOGLOBIN 7.5 g/dL (10.0-15.0)
[2017-02-01 15:46] LABS: BILIRUBIN URINE NEGATIVE (NEGATIVE); BLOOD URINE 150 /UL (NEGATIVE); COLOR URINE YELLOW (YELLOW); GLUCOSE URINE NEGATIVE (NEGATIVE); KETONE URINE NEGATIVE (NEGATIVE); LEUKOCYTES URINE NEGATIVE /UL (NEGATIVE); NITRITE URINE NEGATIVE (NEGATIVE); PROTEIN URINE NEGATIVE (NEGATIVE); TURBIDITY URINE CLEAR (CLEAR); UROBILINOGEN URINE NORMAL (NORMAL)
[2017-02-01 15:55] LABS: BACTERIA URINE MODERATE (NEGATIVE); EPITHELIAL URINE 0-2 #/HPF (NEGATIVE); MUCUS URINE 1+ (NEGATIVE); RENAL EPITH URINE 0-2 #/HPF (NEGATIVE); WBC URINE NEGATIVE #/HPF (NEGATIVE)
[2017-02-01 21:53] LABS: HEMATOCRIT 25.4 % (33.0-46.0); HEMOGLOBIN 8.1 g/dL (10.0-15.0)
[2017-02-02 04:56] LABS: BICARBONATE 26.1 mmol/L (18.0-23.0); PCO2 35 mmHg (35-45); PO2 88 mmHg (80-90)
[2017-02-02 05:19] LABS: ALBUMIN 2.7 gm/dL (3.5-5.0); CALCIUM 7.5 mg/dL (8.5-10.5); CREATININE 1.1 mg/dL (0.5-1.1); MAGNESIUM 1.7 mg/dL (1.8-2.6)
[2017-02-02 05:22] LABS: BASOPHIL % 0.1 %; EOSINOPHIL # 0.4 K/uL (0.0-0.5); EOSINOPHIL % 3.7 %; HEMATOCRIT 28.1 % (33.0-46.0); HEMOGLOBIN 9.2 g/dL (10.0-15.0); IMMATURE GRANULOCYTE % 0.4 %; LYMPHOCYTE # 1.1 K/uL (0.8-4.0); LYMPHOCYTE % 10.6 %; MCH 28.8 pg (27.0-34.0); MCHC 32.7 gm/dL (32.0-36.5); MCV 88.1 fl (83.0-98.0); MONOCYTE # 0.3 K/uL (0.0-1.0); MONOCYTE % 3.1 %; MPV 11.3 fl (9.4-12.4); NEUTROPHIL # (ANC) 8.4 K/uL (1.8-7.8); NEUTROPHIL % 82.1 %; NRBC % 0.5 /100WBC (0-0.00); PLATELET COUNT 161 K/uL (150-450); RBC 3.19 M/uL (3.50-5.50); RDW-CV 15.1 % (11.9-14.6); WBC 10.2 K/uL (4.0-11.0)
[2017-02-02 19:08] LABS: CALCIUM 9.2 mg/dL (8.5-10.5); MAGNESIUM 2.3 mg/dL (1.8-2.6); POTASSIUM 3.7 mMol/L (3.7-5.1)
[2017-02-03 06:36] LABS: CREATININE 0.8 mg/dL (0.5-1.1)
[2017-02-04 04:46] LABS: ALBUMIN 2.8 gm/dL (3.5-5.0); ANION GAP 11.3 (10.0-19.0); CALCIUM 8.7 mg/dL (8.5-10.5); CREATININE 0.9 mg/dL (0.5-1.1); PHOSPHORUS 4.2 mg/dL (2.5-4.9); POTASSIUM 3.3 mMol/L (3.7-5.1)
[2017-02-04 05:02] LABS: BASOPHIL % 0.2 %; EOSINOPHIL # 1.2 K/uL (0.0-0.5); EOSINOPHIL % 6.9 %; HEMATOCRIT 27.2 % (33.0-46.0); IMMATURE GRANULOCYTE # 0.5 K/uL (0.0-0.3); IMMATURE GRANULOCYTE % 2.8 %; LYMPHOCYTE # 1.6 K/uL (0.8-4.0); LYMPHOCYTE % 9.4 %; MCH 29.4 pg (27.0-34.0); MCHC 33.1 gm/dL (32.0-36.5); MCV 88.9 fl (83.0-98.0); MONOCYTE % 5.6 %; NEUTROPHIL # (ANC) 13.1 K/uL (1.8-7.8); NEUTROPHIL % 75.1 %; NRBC % 0.3 /100WBC (0-0.00); RBC 3.06 M/uL (3.50-5.50); RDW-CV 14.5 % (11.9-14.6)
[2017-02-04 05:04] LABS: PLATELET COUNT 207 K/uL (150-450); WBC 17.4 K/uL (4.0-11.0)
[2017-02-05 05:36] LABS: ALBUMIN 2.7 gm/dL (3.5-5.0); ANION GAP 11.4 (10.0-19.0); CALCIUM 8.7 mg/dL (8.5-10.5); CREATININE 0.8 mg/dL (0.5-1.1); MAGNESIUM 2.4 mg/dL (1.8-2.6); PHOSPHORUS 3.1 mg/dL (2.5-4.9); POTASSIUM 3.4 mMol/L (3.7-5.1)
[2017-02-05 05:43] LABS: BASOPHIL # 0.1 K/uL (0.0-0.2); BASOPHIL % 0.3 %; EOSINOPHIL # 1.4 K/uL (0.0-0.5); EOSINOPHIL % 7.9 %; HEMATOCRIT 27.6 % (33.0-46.0); HEMOGLOBIN 8.9 g/dL (10.0-15.0); IMMATURE GRANULOCYTE # 0.7 K/uL (0.0-0.3); IMMATURE GRANULOCYTE % 4.1 %; LYMPHOCYTE # 1.4 K/uL (0.8-4.0); LYMPHOCYTE % 7.9 %; MCH 29.3 pg (27.0-34.0); MCHC 32.2 gm/dL (32.0-36.5); MCV 90.8 fl (83.0-98.0); MONOCYTE % 5.9 %; MPV 10.1 fl (9.4-12.4); NEUTROPHIL # (ANC) 12.8 K/uL (1.8-7.8); NEUTROPHIL % 73.9 %; NRBC % 0.2 /100WBC (0-0.00); PLATELET COUNT 219 K/uL (150-450); RBC 3.04 M/uL (3.50-5.50); RDW-CV 14.6 % (11.9-14.6)
[2017-02-05 05:44] LABS: WBC 17.3 K/uL (4.0-11.0)
[2017-02-06 05:24] LABS: ALBUMIN 2.7 gm/dL (3.5-5.0); ANION GAP 11.8 (10.0-19.0); CALCIUM 8.8 mg/dL (8.5-10.5); CREATININE 0.9 mg/dL (0.5-1.1); PHOSPHORUS 2.4 mg/dL (2.5-4.9); POTASSIUM 3.8 mMol/L (3.7-5.1)
[2017-02-06 05:36] LABS: HEMOGLOBIN 8.9 g/dL (10.0-15.0); MCH 28.3 pg (27.0-34.0); MCHC 30.7 gm/dL (32.0-36.5); MCV 92.1 fl (83.0-98.0); MPV 9.3 fl (9.4-12.4); PLATELET COUNT 254 K/uL (150-450); RBC 3.15 M/uL (3.50-5.50); RDW-CV 15.3 % (11.9-14.6)
[2017-02-06 06:53] LABS: ABSOLUTE NEUTROPHIL CT (ANC) 13.1 K/uL (1.8-7.8); BANDED NEUTROPHIL # 0.9 K/uL (0.0-0.1); BANDED NEUTROPHILS % 5 %; LYMPHOCYTE # 2.7 K/uL (0.8-4.0); LYMPHOCYTE % 15 %; MONOCYTE # 0.5 K/uL (0.0-1.0); SEGMENTED NEUTROPHIL # 12.2 K/uL (1.8-7.8); SEGMENTED NEUTROPHIL % 68 %
[2017-02-08 04:42] LABS: HEMOGLOBIN 10.9 g/dL (10.0-15.0); MCH 27.9 pg (27.0-34.0); MCV 92.8 fl (83.0-98.0); RDW-CV 16.7 % (11.9-14.6); WBC 15.8 K/uL (4.0-11.0)
[2017-02-08 04:44] LABS: HEMATOCRIT 36.2 % (33.0-46.0); MCHC 30.1 gm/dL (32.0-36.5); PLATELET COUNT 317 K/uL (150-450)
[2017-02-08 04:58] LABS: ALBUMIN 2.9 gm/dL (3.5-5.0); ANION GAP 14.1 (10.0-19.0); CALCIUM 8.7 mg/dL (8.5-10.5); POTASSIUM 4.1 mMol/L (3.7-5.1); TOTAL PROTEIN 6.9 g/dL (6.0-8.4)
[2017-02-08 05:01] LABS: TOTAL BILIRUBIN 0.9 mg/dL (0.0-1.5)
[2017-02-08 06:00] LABS: ABSOLUTE NEUTROPHIL CT (ANC) 10.7 K/uL (1.8-7.8); BANDED NEUTROPHIL # 0.2 K/uL (0.0-0.1); BANDED NEUTROPHILS % 1 %; LYMPHOCYTE # 2.5 K/uL (0.8-4.0); LYMPHOCYTE % 16 %; MONOCYTE # 1.4 K/uL (0.0-1.0); SEGMENTED NEUTROPHIL # 10.6 K/uL (1.8-7.8); SEGMENTED NEUTROPHIL % 67 %
[2017-02-11 06:33] LABS: BASOPHIL # 0.2 K/uL (0.0-0.2); BASOPHIL % 1.1 %; EOSINOPHIL # 0.4 K/uL (0.0-0.5); EOSINOPHIL % 2.5 %; HEMATOCRIT 33.5 % (33.0-46.0); HEMOGLOBIN 10.4 g/dL (10.0-15.0); IMMATURE GRANULOCYTE # 0.3 K/uL (0.0-0.3); IMMATURE GRANULOCYTE % 1.8 %; LYMPHOCYTE # 1.9 K/uL (0.8-4.0); LYMPHOCYTE % 13.5 %; MCH 28.7 pg (27.0-34.0); MCV 92.3 fl (83.0-98.0); MONOCYTE # 0.7 K/uL (0.0-1.0); MONOCYTE % 5.1 %; MPV 9.5 fl (9.4-12.4); NEUTROPHIL # (ANC) 10.8 K/uL (1.8-7.8); NRBC % 0 /100WBC (0-0.00); PLATELET COUNT 299 K/uL (150-450); RBC 3.63 M/uL (3.50-5.50); RDW-CV 16.9 % (11.9-14.6); WBC 14.2 K/uL (4.0-11.0)
[2017-02-11 06:48] LABS: ALBUMIN 2.8 gm/dL (3.5-5.0); ANION GAP 12.4 (10.0-19.0); CALCIUM 8.7 mg/dL (8.5-10.5); CREATININE 1.1 mg/dL (0.5-1.1); MAGNESIUM 2.4 mg/dL (1.8-2.6); POTASSIUM 4.4 mMol/L (3.7-5.1); TOTAL PROTEIN 6.7 g/dL (6.0-8.4)
[2017-02-11 06:49] LABS: TOTAL BILIRUBIN 1.2 mg/dL (0.0-1.5)
[2017-02-11] MEDS ORDERED: PROAMATINE5 MG PO (10:50)
[2017-02-11] MEDS ORDERED: XARELTO15 MG PO (10:57)
[2017-02-11] MEDS ORDERED: PROVENTIL OR V6.7 GM INH (11:03)
[2017-02-11] MEDS ORDERED: TYLENOL325 MG PO (11:04)
[2017-02-11] MEDS ORDERED: CIPRO500 MG PO (11:09)
== END 2017-02-11 16:00 | disposition home health service (06) | DRG 208 ==
LOC: GMED 14:57 → GICU 16:36 → GPCU 02-07 14:35
PROVIDERS: Emergency Medicine; Nurse Practitioner Women's Health; ADMIT Thoracic Surgery (Cardiothoracic Vascular Surgery)
DX: I26.92 Saddle embolus of pulmonary artery without acute cor pulmonale (principal); I26.90 Septic pulmonary embolism without acute cor pulmonale; J96.00 Acute respiratory failure, unspecified whether with hypoxia or hypercapnia; J18.9 Pneumonia, unspecified organism; J90 Pleural effusion, not elsewhere classified; D62 Acute posthemorrhagic anemia; Z95.2 Presence of prosthetic heart valve; Z88.8 Allergy status to other drugs, medicaments and biological substances; Z78.1 Physical restraint status; R73.9 Hyperglycemia, unspecified; D72.829 Elevated white blood cell count, unspecified
CPT/HCPCS: J0171; J0692; J0885; J1200; J1644; J1650; J1720; J1956; J2250; J2405; J2704; J2916; J3370; J3475; J3480; J7030; J7040; J7050; J7060; P9016; P9045; Q9967

== ENCOUNTER 2017-02-17 16:28 | Inpatient (IN) | payer OTHER ==
[~2017-02-17] VITALS: Ht 162.6 cm; Wt 71.2 kg
--- NOTE | ~2017-02-17 | HP ---
PATIENT'S NAME: NYA [facility]ERA [facility] AGE: 56 Y [address] ROOM: [place] [address] LOCATION: GPCU ADMIT DATE: 02/17/2017 History & Physical DISCHARGE DATE: FAMILY PHYSICIAN: Madison Burris MD ATTENDING PHYSICIAN: Gordon Crawford DATE OF SERVICE: CHIEF COMPLAINT: Nausea and fever. HISTORY OF PRESENT ILLNESS: The patient is a 56-year-old female who is approximately 3-to 4-week status post mitral valve repair with a quadrangular resection. During that hospitalization, she did well and was discharged in good condition. She then came back with shortness of breath and what appeared to be a sepsis syndrome. Her workup ultimately revealed reddy cultures which grew nothing, left pleural effusion, and bilateral pulmonary emboli with a saddle component. She was anticoagulated on heparin and converted to Xarelto. She did require mechanical ventilation for short period of time, but was weaned fairly easily. She did well after that and participated in physical therapy and was discharged to home with home health to see her. On the day prior to this admission, she started to feel weak and somewhat nauseated and developed a fever which was as high as 103, on the morning of admission. It decreased progressively during the day. She called Dr. Isaac's office close to the close of business hours and was directed to the emergency department where she was seen. She had a low-grade fever only at that time, complained of some mild shortness of breath, but no chest pain. She was found to have low normal blood pressure, tachycardia, and normal procalcitonin. Blood cultures were drawn in the ER. She denied any dysuria or productive cough. PAST MEDICAL HISTORY: Severe mitral regurgitation, status post repair. She is nondiabetic and is a nonsmoker. SOCIAL HISTORY: Denies alcohol abuse and smoking. MEDICATIONS: 1. Calcium with vitamin D. 2. Multivitamin. 3. Vitamin C. 4. Prilosec. 5. Maalox. 6. Excedrin extra-strength p.r.n. [facility] 56 [facility] [address] ROOM: [place] [address] LOCATION: GPCU ADMIT DATE: 02/17/2017 History & Physical DISCHARGE DATE: FAMILY PHYSICIAN: Madison Burris MD ATTENDING PHYSICIAN: Gordon Crawford 7. Pen-Vee K. 8. Midodrine. 9. Omeprazole. 10. Amoxicillin. 11. Aspirin. 12. Colace. 13. Lasix. 14. Potassium. 15. [place]. 16. Xarelto. 17. Albuterol inhaler p.r.n. 18. Cipro. ALLERGIES: CEFEPIME. PHYSICAL EXAMINATION: VITAL SIGNS: The patient is being afebrile at 97.2 with a heart rate of 109 sinus tachycardia and a blood pressure of 106/61, on 2 L of oxygen, she is 98% saturated. Her weight is 64.1 kg. GENERAL: The patient is alert and oriented, in no distress. She denies any pain. She is lying in her bed and appears comfortable. HEENT: Normocephalic, atraumatic. Extraocular movements are intact. The sclerae are anicteric. The conjunctivae are clear. NECK: Supple. No JVD. No bruits. LUNGS: Clear bilaterally. No wheezing, rhonchi, or rales. HEART: Regular rate and rhythm. There is a systolic murmur audible. ABDOMEN: Soft and nontender with no organomegaly. CHEST WALL: Her sternal incision is intact and stable to exam. There is no cellulitis, drainage, or dehiscence. EXTREMITIES: There is no clubbing or cyanosis. She has 1+ edema to her right leg only. NEUROLOGIC: Alert and oriented. She has no gross motor or sensory deficits. PSYCH: Normal mood and affect. Alert and oriented. Appears to have normal judgment. LABORATORY DATA: Venous lactate 1.6. White count 19.3 with a left shift, hemoglobin 9.3, hematocrit 29, platelets 338. Sodium 140, potassium 3.3, CO2 22, chloride 107, glucose 116, BUN 14, creatinine 1.1. Albumin 3.2, alkaline phosphatase 92, AST 88, ALT 27, CPK, CPK-MB, and troponin. BNP 4414. Procalcitonin 0.06. Urinalysis within normal limits. RADIOLOGY: Chest x-ray shows consolidation versus effusion, left lower lung field. CT PATIENT'S NAME: NYA FERRERA [facility] AGE: 56 Y [address] ROOM: [address] [place], [place] [address] [facility] ADMIT DATE: 02/17/2017 History & Physical DISCHARGE DATE: FAMILY PHYSICIAN: Madison Burirs MD ATTENDING PHYSICIAN: Gordon Crawford chest with contrast was performed. This shows a decreased volume of pulmonary emboli versus January 31 of a significant degree. There is also a loculated fluid collection at the left base anteriorly and laterally with partial compressive atelectasis of the left lower lobe. There is a small right pleural effusion, also partially loculated. The sternum appears approximated well and there did not appear to be any collections in the retrosternal anterior mediastinal area. IMPRESSION: 1. The patient is presenting with an infectious/septic (early) picture, possible left pneumonia, possible left empyema. 2. Congestive heart failure. PLAN: We will admit and place on vancomycin and Zosyn. Plan 2D echocardiogram. Hydration with IV fluids. We will allow the Xarelto to wear off over a couple of days, heparinized in the morning, and plan diagnostic tap of the left effusion. If this is positive, she will require a left thoracoscopy with drainage of empyema and decortication. GORDON CRAWFORD MD WR/modl /[id number] CC: Madison Burris MD D: [id number] T: [id number] HISTORY & PHYSICAL
--- NOTE | ~2017-02-17 | ECHO ---
Transthoracic Echocardiography Report (TTE) Demographics Patient Name NYA FERRERA Date of Study 02/18/2017 Patient Number [id number] Visit Number [id number] Date of 1960 Room Number G6303 Gender Female Number Age 56 year(s) Referring Ty Young Director Of Strategic Programs Deepali Salvador, Physician RT,RVT,RDCS Physician Interpreting Georgiana Soriano Spray Gunner Physician Eleni STEELE Supervising Ordering Ty Young MD, MD/MLP Physician Nurse Stress Bowling Ball Patcher Conclusions Contractility Score Summary At rest the following contractility abnormalities were noted: Hypokinesis of the Mid ca-septal, the Mid infero-septal, the Basal ca-septal and the Basal infero-septal segments. Contractility of all other segments appeared normal. Summary The estimated left ventricular ejection fraction is 70-75%. Mild septal left ventricular hypertrophy. Hyperdynamic LV systolic performance. The left ventricle is normal in size . Diastolic assessment reveals Grade I diastolic dysfunction . Mild to moderately dilated right ventricle. Mildly reduced right ventricular function. Repaired Mitral valve with elevated velocity and mean gradient of 9mmHg Mild to moderate mitral regurgitation. Thickened leaflets, vegetation cannot be ruled out There is mild pulmonary hypertension. The pulmonary pressure (RVSP) is 42 mmHg. Mild tricuspid regurgitation . Small anterior pericardial effusion Large pleural effusion present. Small amount of ascites Procedure Type of Study TTE procedure:2D Echocardiogram, M-Mode, Doppler , Color Doppler. Procedure Date Date: 02/18/2017 Start: 07:22 AM Study Location: Inpatient Portable Technical Quality: Adequate visualization Indications:History of mitral valve repair. Additional Indications:Sepsis Appropriate Use Criteria: 9 Patient Status: Routine HR: 105 bpm BP: 113/55 mmHg Allergies - Other:(nickel). M-Mode/2D Measurements LV Diastolic Dimension: 4.07 cm LV Systolic Dimension: 2.33 cm LV Septum Diastolic: 1.25 cm LV Septum Systolic: 1.49 cm LV PW Diastolic: 0.97 cm LV PW Systolic: 1.81 cm AO Root Dimension: 3.2 cm RV Diastolic Dimension: 3.21 cm AV Cusp Separation: 1.5 cm EF Estimated: 70 % LA Dimension: 4.2 cm LA volume: 52 ml LVOT: 2.1 cm Doppler Measurements MV Peak E-Wave: 1.74 m/s MV Peak A-Wave: 1.96 m/s MV E/A Ratio: 0.89 TR Velocity:2.84 m/s MV P1/2t: 96 msec TR Gradient:32.26 mmHg MV Mean Gradient: 8 mmHg Estimated RAP:10 mmHg E' Lateral Velocity: 0.08 m/s PV Peak Velocity: 1.19 m/s MV E/E' Ratio: 21.7 PV Peak Gradient: 5.66 mmHg Estimated PASP: 42.26 mmHg A' Lateral Velocity: 0.13 m/s Findings Left Ventricle Mild septal left ventricular hypertrophy. Hyperdynamic LV systolic performance. The left ventricle is normal in size . Diastolic assessment reveals Grade I diastolic dysfunction . Right Ventricle Mild to moderately dilated right ventricle. Mildly reduced right ventricular function. Left Atrium The left atrium is mildly dilated by LA volume index measurement. Right Atrium Normal right atrial size. Mitral Valve Repaired Mitral valve with elevated velocity and mean gradient of 9mmHg Mild to moderate mitral regurgitation. Thickened leaflets, vegetation cannot be ruled out Aortic Valve The aortic valve is mildly sclerotic. The aortic valve was not well imaged. Tricuspid Valve There is mild pulmonary hypertension. The pulmonary pressure (RVSP) is 42 mmHg. Mild tricuspid regurgitation . Pulmonic Valve Normal pulmonic valve structure and function. Pericardial Effusion Small anterior pericardial effusion Miscellaneous Visualized portions of the aortic root and ascending aorta appear normal in size. Pleural Effusion Large pleural effusion present. Small amount of ascites Contractility Score LV regional wall motion:(0-Non visualized 1-Normal 2-Hypokinesis 3-Akinesis 4-Dyskinesis 5-Aneurysm) Signature dtt: Caity Stoner dtd: 02/18/17 0722 Physician Self Edit
--- NOTE | ~2017-02-17 | DS ---
PATIENT'S NAME: NYA FERRERA [facility] AGE: 57 Y [address] ROOM: [address] [address] LOCATION: GPCU ADMIT DATE: 02/17/2017 Discharge Summary DISCHARGE DATE: 02/26/2017 FAMILY PHYSICIAN: Madison Burris MD ATTENDING PHYSICIAN: Oliver Fall HISTORY OF PRESENT ILLNESS: The patient is a 56-year-old white female who is status post mitral valve with a quadrangular resection, that had been performed nearly one month prior. She had a previous readmit with bilateral pulmonary emboli and a left pleural effusion that required she undergo mechanical ventilation. She was started on Xarelto. She responded to antibiotic therapy and ultimately was discharged on oral antibiotics. Here now, she is readmitted on 02/17/2017 with a septic picture, reporting that she had a temperature at home of 103. Imaging reveals that she has a left-sided pleural effusion. An echocardiogram shows essentially negative echocardiogram with an EF of 70% to 75%, mild pulmonary hypertension, and a mean mitral valve gradient of 9 mmHg. Her BNP was at 4400. She was started on vancomycin and Zosyn IV. She underwent a thoracentesis with interventional radiologist yielding 175 mL of bloody fluid, thought to be old hematoma. She had Doppler studies of her bilateral extremities with positive DVT to the right leg and a subacute DVT to the left peroneal vein. She did receive 2 units of packed cells. She did require oxygen therapy upon her readmission. We did have her work with Cardiac Rehab. She was placed on heparin drip. She was hypokalemic on several occasions and required IV heparin. We did attempt a second thoracentesis only yielding 10 mL of fluid. The patient, however, responded very well to the antibiotic therapy. Overall, she was much improved. Her white count came down from 19.3 at the time of her admission to 9.0 near time of discharge. We did have a PICC line placed so that the patient could have home infusion with vancomycin. Her Xarelto was restarted at 15 mg b.i.d. The patient no longer required oxygen therapy and felt good to discharge to home. Arrangements were made by Care Management for discharge care. The patient was stable to discharge to home on February 26, 2017. DISCHARGE ORDERS: Include a diet with no restrictions. Activity with no restrictions. The patient no longer has sternal precautions that she is more than 6 weeks out from her surgery. Dressings, the patient does not have any dressing changes. Followup appointments will be with Dr. Fall in 10 days as well as Dr. Otto in 10 days. PICC line dressing changes are per protocol and p.r.n. with home health care services. Cardiac Rehab will eventually contact the patient for outpatient therapy. We will see the patient in clinic prior to outpatient rehab. We will have a renal panel drawn on March 01, 2017, as PATIENT'S NAME: NYA FERRERA [facility] AGE: 57 Y [address] ROOM: [place] [address] LOCATION: GPCU ADMIT DATE: 02/17/2017 Discharge Summary DISCHARGE DATE: 02/26/2017 FAMILY PHYSICIAN: Madison Burris MD ATTENDING PHYSICIAN: Oliver Fall well as a proBNP with the results called to our office. The patient will have troughs drawn for the vancomycin as well. DISCHARGE MEDICATIONS: 1. Citracal 2 tabs daily. 2. Multivitamin 1 tab daily. 3. Ascorbic acid 500 mg daily. 4. Omeprazole 40 mg daily. 5. Maalox 10 mL p.r.n. h.s. 6. Excedrin Extra Strength 2 tablets q.6 hours p.r.n. 7. Ecotrin 325 mg daily. 8. Colace 100 mg twice a day. 9. [place] 5/325 one to two every 4 to 6 hours as needed. 10. Midodrine 5 mg t.i.d. 11. Xarelto 15 mg twice a day. 12. Albuterol 2 puffs per inhalation twice a day. 13. Vancomycin 1250 mg q.24 hours IV through March 13. 14. Lopressor 6.25 mg twice a day. 15. Aldactone 12.5 mg every other day. FINAL DIAGNOSES: 1. Sepsis/congestive heart failure, for admission. 2. Mitral valve repair. 3. Hypotension (from previous hospitalization), also hypokalemia. 4. Bilateral pulmonary emboli, prior admission. 5. Deep venous thrombosis, bilateral lower extremities. DISPOSITION: The patient discharged to home with home health care services in stable condition. MADELIN WARE APRN FOR OLIVER FALL DO DLQ/modl /[id number] d: 03/16/17 0247 t: 03/16/17 1206, DISCHARGE SUMMARY
--- NOTE | ~2017-02-17 | ER ---
[facility] 56 [facility] [address] ROOM: [place] [address] LOCATION: GPCU ADMIT DATE: 02/17/2017 ER/Outpatient Report DISCHARGE DATE: FAMILY PHYSICIAN: Madison Burris MD ATTENDING PHYSICIAN: Gordon Crawford Time of Arrival: 1628 hours. Time of Evaluation: 1641 hours. CHIEF COMPLAINT: Abdominal pain, increased shortness of breath. HISTORY OF PRESENT ILLNESS: The patient is a 56-year-old female, who presents to the emergency department today with chief complaint of abdominal pain, increased shortness of breath. She reports fevers and chills as well subjective. She denies any chest pain, nausea, or vomiting. No back pain. No diarrhea. No headache. The patient reports 0/10 pain at this time. PAST MEDICAL HISTORY: Mitral valve repair on January 13 for severe MR by Dr. Isaac. The patient was admitted for saddle pulmonary embolism and left pleural effusion on 01/31. Her last echocardiogram on 02/01/2017 shows left ventricular ejection fracture of 40%-45%. PAST SURGICAL HISTORY: Mitral valve repair. SOCIAL HISTORY: The patient denies any tobacco, alcohol, or illicit drug use. ALLERGIES: NO KNOWN DRUG ALLERGIES. MEDICATIONS: Please see list. PRIMARY CARE DOCTOR: Dr. Burris. CARDIOTHORACIC SURGEON: Dr. Isaac. REVIEW OF SYSTEMS: All systems are reviewed by myself and are negative with the exception of PAT[facility]: [facility] 56 Y [address] ROOM: [place] [address] LOCATION: GPCU ADMIT DATE: 02/17/2017 ER/Outpatient Report DISCHARGE DATE: FAMILY PHYSICIAN: Madison Burris MD ATTENDING PHYSICIAN: Gordon Crawford those discussed in the HPI and past medical history. PHYSICAL EXAMINATION: VITAL SIGNS: Weight 72.5 kg, blood pressure 119/59, pulse 116, respiratory rate is 24, temperature 99.0, oxygen saturation 91% on room air. GENERAL: The patient is a 56-year-old female, who appears stated age, in no acute distress at this time. HEENT: Head: Normocephalic, atraumatic. Pupils are equal, round, and reactive to light. Extraocular motions are intact. Nares are patent bilaterally. Oropharynx is clear. NECK: Supple. There is no nuchal rigidity. CARDIOVASCULAR: Tachycardic. No murmurs, rubs, or gallops. LUNGS: Clear to auscultation bilaterally. No wheezes, rales, or rhonchi. ABDOMEN: Soft, nontender, and nondistended. No rebound, rigidity, or guarding. MUSCULOSKELETAL: The patient does have tenderness to palpation along the anterior chest wall. SKIN: Surgical incision site is clean, dry, and intact. 1+ pretibial edema in bilateral lower extremities. LABORATORY DATA AND X-RAYS: EKG is obtained, is interpreted by myself at 1704 hours shows sinus tachycardia with a rate of 108, normal axis, normal interval. No ST elevation or ST depression. There is nonspecific T-waves. No significant change from 01/31/2017. CBC: White blood cell count 19.3, hemoglobin 9.3, hematocrit 28.9, platelet normal, ANC is 15.4. Venous blood gas: 7.53, 27, 75, 23, 0.9. Lactate 1.6. PTT is 44, PT is 18.1, INR is 1.7. Procalcitonin 0.06. CMP normal except for potassium 3.3. Alkaline phosphatase is normal, AST is 88, ALT is normal. Cardiac enzymes are normal. ProBNP is 4414, which is increased from previous 2232. INR is 1.71. Two-view chest x-ray is obtained, is shows worsening radiographic appearance from imaging on 02/17. There is opacity in the mid and lower left pneumothorax and lower right hemothorax consistent with lung consolidation and pleural fluid. IMPRESSION: 1. Worsening lung consolidation with possible pneumonia versus empyema. 2. Sepsis due to worsening lung consolidation with pneumonia versus empyema. 3. Congestive heart failure with last known EF 40% to 45% systolic. 4. Status post mitral valve repair. 5. Initial visit. PATIENT'S NAME: NYA FERRERA [facility] AGE: 56 Y [address] ROOM: [address] [address] LOCATION: GPCU ADMIT DATE: 02/17/2017 ER/Outpatient Report DISCHARGE DATE: FAMILY PHYSICIAN: Madison Burris MD ATTENDING PHYSICIAN: Gordon Crawford EMERGENCY DEPARTMENT COURSE: The patient was brought back to the examination room. Seen and evaluated by myself. IV is established. Laboratory analysis and imaging are obtained as described above. I have discussed the results with the patient. The patient was given a liter of normal saline IV. I did discuss the case with Dr. Crawford with Cardiothoracic Surgery. He does agree to accept the patient for further evaluation, treatment, and management. The patient was initiated on broad-spectrum antibiotics, Zosyn 4.5 g IV as well as vancomycin 1350 mg. I have had a discussion with the patient being in sepsis picture about fluids. The patient does have systolic heart failure with the sepsis and systolic heart failure. The patient refuses any further IV fluids over 1 L. I have discussed risks and benefits with her. She is agreeable with everything else with a sepsis picture. She does not want more fluids than 1 L. DISPOSITION: The patient is admitted under the care of Dr. Crawford in stable condition. DO MATI MANCERA/modl /[id number] d: 02/19/174 t: 02/19/17 0206, OUTPATIENT REPORT
--- NOTE | ~2017-02-17 | ENPV ---
Vascular Lower Extremities DVT Study Procedure Demographics Patient Name NYA FERRERA Date of Study 02/22/2017 Patient Number [id number] Gender Female Date of 1960 Age 56 Visit Number [id number] Height 64 Accession Number [id number] Weight 141 Referring Ty Young MD Interpreting Kendrick Starkey MD Physician Fatuma Cantu MD Physician Physician Ordering Physician Poncho Guerrero Tax Services Intern DO Wig Maker Jose Rogers T, [facility] Conclusions Summary There is acute occlusive DTV in the right distal superficial femoral vein. There is sub-acute occlusive DVT in the right popliteal through the calf veins including gastroc veins. There is sub-acute occlusive DVT in one of the left peroneal veins. Procedure Type of Study: Veins:Lower Extremities DVT Study, Venous Duplex Lower Extremity Bilateral. Indications for Study:Bilateral lower extremity edema. Appropriate Use Criteria:9 Allergies - Other:(nickel). Patient Status:Routine. Study Location:Inpatient Portable. Technical Quality:Good visualization. - Preliminary reported to:Dr. Isaac at 1515. Velocities are measured in cm/s ; Diameters are measured in cm Right Lower Extremities DVT Study Measurements Right 2D and Doppler Measurements + + + + +------+------+ + !Location !Visualized!Compressibility!Thrombosis!Signal!Reflux!Reflux ! ! ! ! ! ! ! !(sec) ! + + + + +------+------+ + !GSV Thigh !Yes !Yes !None !Phasic! ! ! + + + + +------+------+ + !Common !Yes !Yes !None !Phasic! ! ! !Femoral ! ! ! ! ! ! ! + + + + +------+------+ + !Prox !Yes !Yes !None !Phasic! ! ! !Femoral ! ! ! ! ! ! ! + + + + +------+------+ + !Mid Femoral!Yes !Yes !None !Phasic! ! ! + + + + +------+------+ + !Dist !Yes !No !Acute !Absent! ! ! !Femoral ! ! ! ! ! ! ! + + + + +------+------+ + !Popliteal !Yes !No !Sub-acute !Absent! ! ! + + + + +------+------+ + !Gastroc !Yes !No !Sub-acute !Absent! ! ! + + + + +------+------+ + !PTV !Yes !No !Sub-acute !Absent! ! ! + + + + +------+------+ + !Peroneal !Yes !No !Sub-acute !Absent! ! ! + + + + +------+------+ + Left Lower Extremities DVT Study Measurements Left 2D and Doppler Measurements + + + + +------+------+ + !Location !Visualized!Compressibility!Thrombosis!Signal!Reflux!Reflux ! ! ! ! ! ! ! !(sec) ! + + + + +------+------+ + !GSV Thigh !Yes !Yes !None !Phasic! ! ! + + + + +------+------+ + !Common !Yes !Yes !None !Phasic! ! ! !Femoral ! ! ! ! ! ! ! + + + + +------+------+ + !Prox !Yes !Yes !None !Phasic! ! ! !Femoral ! ! ! ! ! ! ! + + + + +------+------+ + !Mid Femoral!Yes !Yes !None !Phasic! ! ! + + + + +------+------+ + !Dist !Yes !Yes !None !Phasic! ! ! !Femoral ! ! ! ! ! ! ! + + + + +------+------+ + !Popliteal !Yes !Yes !None !Phasic! ! ! + + + + +------+------+ + !PTV !Yes !Yes !None !Phasic! ! ! + + + + +------+------+ + !Peroneal !Yes !No !Sub-acute !Absent! ! ! + + + + +------+------+ + Signature dtt: DARWIN CANAS dtcristina: 02/22/17 1448 Physician Self Edit
[~2017-02-17 16:28] MED LIST changes: +CIPRO500 MG PO; +PROAMATINE5 MG PO; +PROVENTIL OR V6.7 GM INH; +TYLENOL325 MG PO; +XARELTO15 MG PO
[2017-02-17 17:09] LABS: BICARBONATE 22.6 mmol/L (18.0-23.0); LACTATE 1.6 mEq/L (0.50-1.60); PO2 75 mmHg (80-90)
[2017-02-17 17:11] LABS: BASOPHIL # 0.2 K/uL (0.0-0.2); BASOPHIL % 0.9 %; EOSINOPHIL # 0.1 K/uL (0.0-0.5); EOSINOPHIL % 0.5 %; HEMATOCRIT 28.9 % (33.0-46.0); HEMOGLOBIN 9.3 g/dL (10.0-15.0); IMMATURE GRANULOCYTE # 0.1 K/uL (0.0-0.3); IMMATURE GRANULOCYTE % 0.6 %; LYMPHOCYTE # 2.4 K/uL (0.8-4.0); LYMPHOCYTE % 12.6 %; MCH 29.7 pg (27.0-34.0); MCHC 32.2 gm/dL (32.0-36.5); MCV 92.3 fl (83.0-98.0); MONOCYTE # 1.1 K/uL (0.0-1.0); MONOCYTE % 5.6 %; MPV 9.7 fl (9.4-12.4); NEUTROPHIL # (ANC) 15.4 K/uL (1.8-7.8); NEUTROPHIL % 79.8 %; NRBC % 0 /100WBC (0-0.00); PLATELET COUNT 338 K/uL (150-450); RBC 3.13 M/uL (3.50-5.50); RDW-CV 18.2 % (11.9-14.6)
[2017-02-17 17:12] LABS: PCO2 27 mmHg (35-45)
[2017-02-17 17:13] LABS: WBC 19.3 K/uL (4.0-11.0)
[2017-02-17 17:23] LABS: INR - (THERAPEUTIC) 1.71 (0.92-1.07); PROTIME 18.1 SECONDS (9.8-11.4); PTT 44 SECONDS (25-32)
[2017-02-17 17:38] LABS: ALBUMIN 3.2 gm/dL (3.5-5.0); ALK PHOS 92 IU/L (33-138); ALT 27 IU/L (12-78); ANION GAP 14.3 (10.0-19.0); AST 88 IU/L (10-40); BLOOD UREA NITROGEN 14 mg/dL (6-24); CALCIUM 8.2 mg/dL (8.5-10.5); CHLORIDE 107 mMol/L (96-110); CO2 22 mMol/L (22-32); CPK 72 IU/L (21-215); CREATININE 1.1 mg/dL (0.5-1.1); POTASSIUM 3.3 mMol/L (3.7-5.1); SODIUM 140 mMol/L (135-145); TOTAL PROTEIN 7.4 g/dL (6.0-8.4)
[2017-02-17 17:39] LABS: TOTAL BILIRUBIN 2.2 mg/dL (0.0-1.5)
[2017-02-17 18:12] LABS: BILIRUBIN URINE NEGATIVE (NEGATIVE); BLOOD URINE 150 /UL (NEGATIVE); COLOR URINE YELLOW (YELLOW); GLUCOSE URINE NEGATIVE (NEGATIVE); KETONE URINE NEGATIVE (NEGATIVE); LEUKOCYTES URINE NEGATIVE /UL (NEGATIVE); NITRITE URINE NEGATIVE (NEGATIVE); PROTEIN URINE 30 mg/dL (NEGATIVE); TURBIDITY URINE 1+ (CLEAR); UROBILINOGEN URINE NORMAL (NORMAL)
[2017-02-17 18:22] LABS: WBC URINE 0-2 #/HPF (NEGATIVE)
[2017-02-17 18:23] LABS: AMORPHOUS URINE 1+ (NEGATIVE); BACTERIA URINE NEGATIVE (NEGATIVE); MUCUS URINE 1+ (NEGATIVE)
--- NOTE | 2017-02-17 20:12 | NUR ---
Patient had been having abdominal pain, went to physical therapy and temp was 100.3. Patient went to ER and transfered to PCU. Arrived on 2L O2. VSS. Alert and oriented x3. IV antibiotics initiated. Patient recently here for MVR and saddle PE, pleural effusions in January.
[2017-02-18 04:10] LABS: BASOPHIL # 0.1 K/uL (0.0-0.2); BASOPHIL % 0.4 %; EOSINOPHIL # 0.1 K/uL (0.0-0.5); EOSINOPHIL % 0.5 %; HEMATOCRIT 26.8 % (33.0-46.0); HEMOGLOBIN 8.3 g/dL (10.0-15.0); IMMATURE GRANULOCYTE # 0.1 K/uL (0.0-0.3); IMMATURE GRANULOCYTE % 0.5 %; LYMPHOCYTE # 0.6 K/uL (0.8-4.0); LYMPHOCYTE % 3.5 %; MCH 29.1 pg (27.0-34.0); MONOCYTE # 0.6 K/uL (0.0-1.0); MONOCYTE % 3.6 %; MPV 9.4 fl (9.4-12.4); NEUTROPHIL # (ANC) 14.6 K/uL (1.8-7.8); NEUTROPHIL % 91.5 %; NRBC % 0 /100WBC (0-0.00); PLATELET COUNT 273 K/uL (150-450); RBC 2.85 M/uL (3.50-5.50)
--- NOTE | 2017-02-18 04:24 | NUR ---
Significant event: Patient is alert and oriented. VSS on 2L. IV to R) FA with D5 LR running at 125ml/hr. IV to L) wrist saline locked. Up with 1A. No complains of pain. Edema to bilat LE's. Lungs clear and dim. Recent MVR, incision site intact and open to air. No BM this shift. Zosyn given. Complains of nausea, 4mg zofran given IV x1 with relief noted. Patient has been calm and cooperative with cares. Follow up: Echo in am. Begin Heparin drip in am.
[2017-02-18 07:35] LABS: INR - (THERAPEUTIC) 1.44 (0.92-1.07); PROTIME 15.2 SECONDS (9.8-11.4)
[2017-02-18 08:45] LABS: ABSOLUTE NEUTROPHIL CT (ANC) 14.9 K/uL (1.8-7.8); BANDED NEUTROPHIL # 0.6 K/uL (0.0-0.1); BANDED NEUTROPHILS % 4 %; LYMPHOCYTE # 0.6 K/uL (0.8-4.0); LYMPHOCYTE % 4 %; MONOCYTE # 0.5 K/uL (0.0-1.0); SEGMENTED NEUTROPHIL # 14.2 K/uL (1.8-7.8); SEGMENTED NEUTROPHIL % 89 %
--- NOTE | 2017-02-18 12:21 | NUR ---
Introduced self and role of care management to pt. She is familiar to me on previous admission. She states she was doing well with her sister in law and yesterday working with therapy and had a temp of 100.3 then it continued in the afternoon so notified Vicki Nevarez. She also was not eating the best yesterday as well. She states she was taking her meds and doing well and followup appointment is not till next week. She still has [facility] and was working with them but mostly the therapy portion no nursing. At this time will continue to follow.
--- NOTE | 2017-02-18 17:41 | NUR ---
Significant Event: Follow up: PATIENT ALERT AND ORIENTED THIS SHIFT. ECHOCARDIOGRAM PERFORMED THIS AM. SBP BETWEN 91-113 THIS SHIFT, HR 94-104. TITRATED OXYGEN BETWEEN 2-3L THIS SHIFT. O2 SATS RANGED FROM LOW 80s TO LOW 90s. MD NOTIFIED OF VERY LITTLE OUTPUT IN RELATION TO FLUIDS IN. IVF DECREASED FROM 150MLS/HR-75MLS/HR/. BLADDER SCAN PERFORMED WITH 90MLS. RESULTS CALLED TO DRU WARE. NO FURTHER ORDERS. HEPARIN TO STOP AT 0400 02/19/[address] GUIDED THORACENTESIS WITH POSSIBLE DRAIN PLACEMENT. NPO AFTER MIDNIGHT. PATIENT PLEASANT AND COOPERATIVE WITH CARES TODAY.
--- NOTE | 2017-02-19 05:12 | NUR ---
Significant event: Patient A&O x3. SBP 70's-90's with maps 55-60. Dr. Crawford notified. 5% albumin 500ml bolus given. No change in pressures. Dr. Crawford notified again. 5% albumin 500ml bolus given again. Pressures came up to mid 90's with maps 65-70. Developed difficulty breathing with respirations in the 30s. Lungs became crackled in bases on 5L. Dr. Crawford notified. Bipap started. 20mg Lasix IV given. Respirations down to low 20's. Heparin stopped at 0400 for thoracentisis this am. NPO after midnight. Patient has been calm and cooperative with cares. Follow up: Thoracentesis this am.
[2017-02-19 08:34] LABS: BASOPHIL # 0.1 K/uL (0.0-0.2); BASOPHIL % 0.5 %; EOSINOPHIL # 0.5 K/uL (0.0-0.5); EOSINOPHIL % 4.7 %; HEMATOCRIT 23.2 % (33.0-46.0); IMMATURE GRANULOCYTE # 0.2 K/uL (0.0-0.3); IMMATURE GRANULOCYTE % 1.8 %; LYMPHOCYTE % 9.8 %; MCH 28.9 pg (27.0-34.0); MCHC 29.7 gm/dL (32.0-36.5); MCV 97.1 fl (83.0-98.0); MONOCYTE # 0.4 K/uL (0.0-1.0); MONOCYTE % 4.2 %; MPV 9.6 fl (9.4-12.4); NEUTROPHIL # (ANC) 7.7 K/uL (1.8-7.8); NRBC % 0 /100WBC (0-0.00); PLATELET COUNT 239 K/uL (150-450); RBC 2.39 M/uL (3.50-5.50); RDW-CV 17.5 % (11.9-14.6); WBC 9.8 K/uL (4.0-11.0)
[2017-02-19 08:35] LABS: HEMOGLOBIN 6.9 g/dL (10.0-15.0)
--- NOTE | 2017-02-19 12:39 | NUR ---
Supportive visit with pt today. She is a little frustrated about everything. I asked if her is coming and he is not and he is frustrated. I asked if he was coming so he can talk with doctors and her and she says he will not. I encourage her to keep in good spirits and if any questions talk with md's. Will continue to follow.
--- NOTE | 2017-02-19 18:02 | NUR ---
PATIENT OFF BIPAP TODAY AT 0900 HAS MAINTAINED SATS >90% ON 3 LI NC. PATIENT HAS NOT WANTED TO GET OUT OF BED TO DAY. WILL TRY TO INCREASE ACTIVITY TOMORROW.
--- NOTE | 2017-02-19 23:20 | NUR ---
PT REFUSED TO WEAR HER BIPAP TONIGHT AT 2153 AND IS CURRENTLY ON 3L NC.
--- NOTE | 2017-02-20 05:37 | NUR ---
Significant event: A/O x 3. Oxygen titrated down to 2L nc. Lungs clear/dim. 425ml out of de jesus. rested in bed with no c/o pain throughout the night.
--- NOTE | 2017-02-20 19:06 | NUR ---
PATIENT HAS BEEN UP IN CHAIR TODAY MOST OF DAY. SHE HAS SHOWERED AND DID WELL. PATIENTS BLOOD PRESSURE HAS BEEN ABOVE 1OO SYSTOLIC ALL DAY. HEPARIN DRIP, AND ANTIBIOTICS CONTINUE.
--- NOTE | 2017-02-21 01:06 | NUR ---
PT REFUSED TO WEAER HER BIPAP AND IS CURRENTLY ON 2LPM NC.
--- NOTE | 2017-02-21 04:37 | NUR ---
Significant Event: PT A/O X3 SBP 100-110 HR 70-80 SATS 91% 2L NC. DENIES PAIN. HEPARIN AT 1400, NEXT PTTHP 0600. IV IN RT FOREARM. IV ANTIBIOTICS ZOSYN AND VANCO. CORRIGAN 350ML 1X LOOSE BM. HELD HS LOPRESSOR. Follow up: FOLLOW CARE PLAN.
[2017-02-21 05:55] LABS: BASOPHIL % 0.5 %; EOSINOPHIL # 0.6 K/uL (0.0-0.5); EOSINOPHIL % 8.4 %; HEMATOCRIT 23.8 % (33.0-46.0); HEMOGLOBIN 7.4 g/dL (10.0-15.0); IMMATURE GRANULOCYTE % 0.3 %; LYMPHOCYTE # 1.7 K/uL (0.8-4.0); LYMPHOCYTE % 23.6 %; MCH 28.6 pg (27.0-34.0); MCHC 31.1 gm/dL (32.0-36.5); MCV 91.9 fl (83.0-98.0); MONOCYTE # 0.4 K/uL (0.0-1.0); MONOCYTE % 4.8 %; MPV 9.8 fl (9.4-12.4); NEUTROPHIL # (ANC) 4.6 K/uL (1.8-7.8); NEUTROPHIL % 62.4 %; NRBC % 0 /100WBC (0-0.00); PLATELET COUNT 275 K/uL (150-450); RBC 2.59 M/uL (3.50-5.50); RDW-CV 16.4 % (11.9-14.6); WBC 7.3 K/uL (4.0-11.0)
[2017-02-21 08:34] LABS: CREATININE 0.8 mg/dL (0.5-1.1)
--- NOTE | 2017-02-21 18:58 | NUR ---
PATIENT HAS HAD A GOOD DAY. NO PAIN. UP TO CHAIR. BOWEL MOVEMENT X1. SHE RECEIVED 2 UNITS OF BLOOD FOR A HGB 7.4. NEW IV PLACED IN LEFT ANTERIOR FOREARM.
[2017-02-22 03:46] LABS: BASOPHIL # 0.1 K/uL (0.0-0.2); BASOPHIL % 0.9 %; EOSINOPHIL # 0.8 K/uL (0.0-0.5); EOSINOPHIL % 8.3 %; HEMATOCRIT 28.4 % (33.0-46.0); HEMOGLOBIN 9.3 g/dL (10.0-15.0); IMMATURE GRANULOCYTE # 0.1 K/uL (0.0-0.3); IMMATURE GRANULOCYTE % 0.9 %; LYMPHOCYTE # 2.1 K/uL (0.8-4.0); LYMPHOCYTE % 23.1 %; MCH 29.5 pg (27.0-34.0); MCHC 32.7 gm/dL (32.0-36.5); MCV 90.2 fl (83.0-98.0); MONOCYTE # 0.5 K/uL (0.0-1.0); MONOCYTE % 5.4 %; MPV 9.3 fl (9.4-12.4); NEUTROPHIL # (ANC) 5.5 K/uL (1.8-7.8); NEUTROPHIL % 61.4 %; NRBC % 0 /100WBC (0-0.00); PLATELET COUNT 307 K/uL (150-450); RBC 3.15 M/uL (3.50-5.50); RDW-CV 16.3 % (11.9-14.6)
--- NOTE | 2017-02-22 05:31 | NUR ---
Significant Event: PT A/O X3 VSS. SBP 110 HR 60'S SATS 91% 2L NC. PT DENIES PAIN. CORRIGAN GOOD UOP 800. CORRIGAN REMOVED AT 0345 PT VOIDED X1 100ML. PT HAD LOOSE BM X2. PT MAY HAVE THORACENTESIS THIS AM. HEPARIN AT 1500. NEXT PTTHP AT 1000. IV'S IN RIGHT AND LEFT FOREARM IV ANTIBIOTICS ZOSYN Q8HR AND VANCO Q12HR. Follow up: FOLLOW CARE PLAN.
[2017-02-22 11:01] LABS: ALBUMIN 2.9 gm/dL (3.5-5.0); ANION GAP 11.7 (10.0-19.0); CALCIUM 8.3 mg/dL (8.5-10.5); CREATININE 0.8 mg/dL (0.5-1.1); POTASSIUM 2.7 mMol/L (3.7-5.1)
--- NOTE | 2017-02-22 11:09 | NUR ---
PT SCREENED D/T LOS. EST NEEDS: [id number] KCALS, 76-89 GM PROTEIN, 1 ML/KCAL FLUIDS. LIMITED INTAKE DATA IN COMPUTER, PT STATES SHE HAS BEEN EATING WELL AND HAS NO CONCERNS. BASED ON CURRENT DATA, NO NUTRITION-RELATED DX IDENTIFIED. WILL F/U IN 7-10 DAYS.
--- NOTE | 2017-02-22 17:21 | NUR ---
SIGNIFICANT EVENT: PT. IS ALERT AND ORIENTED. WALKS 1 ASSIST WITH GB AND HEART HUGGER. COMPLAINED OF NO PAIN THIS SHIFT. SBP 110-130'S. HR 60'S. HAS BEEN VOIDING FINE W/O CORRIGAN IN PLACE. STILL RECEIVING HEPARIN, ZOSYN, AND VANCO IV. IV 40 MEQ KCL X1 ORDERED DUE TO K+ BEING 2.7. L) ANTERIOR FOREARM IV D/C DUE TO PAIN WITH INFUSION. DR. FALL PERFORMED BEDSIDE THORACENTESIS ON THE LEFT SIDE REMOVING A SMALL AMOUNT OF FLUID THAT WAS SENT FOR CULTURE. DRESSING APPLIED TO SITE, QUARTER SIZE AMOUNT OF BLOOD NOTED JUST AFTER PUNCTURE WAS COMPLETED. HEPARIN WAS STOPPED FROM 8120-0043 FOR PROCEDURE. PT. IS NOW ON ROOM AIR, BUT HAS BEEN ON 2L O2 VIA NC ENTIRE DAY WITH SATS AT 92%. DOPPLER DONE TO R) LEG SHOWED ACUTE BLOOD CLOT. PEDAL PULSES 2+. NO REDNESS OR ALTERED SENSATION REPORTED BY PT. PT. COOPERATIVE AND PLEASANT. FOLLOW UP: CONTINUE PLAN OF CARE. CONTINUE TO MONITOR OXYGEN SATS AND POTTASIUM LEVEL.
--- NOTE | 2017-02-23 05:36 | NUR ---
Significant Event: PT A/O X3 VSS. SBP 100-115 HR 60'S SATS AT BEGINNING OF SHIFT 95% ON RA. HS O2 SATS DROPPED TO 88-90 O2 NOW AT 2L PER NC AT 93%. PT BANDAGE CHANGED TO LEFT MID BACK, C/D/I. IV IN RIGHT FOREARM, HEPARIN AT 1500, PT GIVEN 40MEQ KCL PER IV X1 THIS SHIFT, 2 TOTAL. ANTIBIOTICS ZOSYN AND VANCO PT VOIDED 1600 AND BM LOOSE X2. DENIES PAIN. Follow up: FOLLOW CARE PLAN
[2017-02-23 06:19] LABS: CALCIUM 8.3 mg/dL (8.5-10.5); CREATININE 0.9 mg/dL (0.5-1.1); PHOSPHORUS 3.2 mg/dL (2.5-4.9)
[2017-02-23 06:22] LABS: ANION GAP 10.9 (10.0-19.0); POTASSIUM 2.9 mMol/L (3.7-5.1)
--- NOTE | 2017-02-23 12:18 | NUR ---
Social visit with pt today. SHe is doing better and wanting to get out. She plans on staying with sister in law still and manage her house up in [place] and [place]. She does not really want hhc on discharge. I did talk with her regarding exercises, weight, bp, pulse ox and she stated she can handle that at home as well. At this time she denies needs and knows when she gets out she can start her cardiac rehab as well.
--- NOTE | 2017-02-23 15:55 | NUR ---
Significant Event: A/Ox3. [id number]. P-60-70s. Afebrile. Fluctuates between RA-1L NC, currently on RA. Denies SOB. Lungs clear to clear/diminished. Ct done this AM and shows improvement from prior CT. IV ATB therapy continued. 60mEq of KCL given x 1 awaiting lab check for post potassium. Patient recived 2mg of bumex x2 and started on KCL 20Meq PO BID. Heparin changed to xrealto. R) AFA saline locked. Up with SBA.
[2017-02-24 04:31] LABS: HEMATOCRIT 33.1 % (33.0-46.0); HEMOGLOBIN 10.6 g/dL (10.0-15.0); MCH 29.9 pg (27.0-34.0); MCV 93.5 fl (83.0-98.0); MPV 9.8 fl (9.4-12.4); PLATELET COUNT 360 K/uL (150-450); RBC 3.54 M/uL (3.50-5.50); RDW-CV 17.9 % (11.9-14.6); WBC 8.2 K/uL (4.0-11.0)
--- NOTE | 2017-02-24 04:46 | NUR ---
Significant Event: Patient alert and oriented x3. Vital signs stable. On RA-2L O2 per NC. Vanco and Zosyn continue. No complaints of pain this shift. Up with stand-by assist. Uses sternal precautions well. 2650uop this shift. Slept well. Calm and cooperative with all cares. Follow up: Will continue to monitor per plan of care.
[2017-02-24 04:51] LABS: ANION GAP 11.2 (10.0-19.0); CALCIUM 8.6 mg/dL (8.5-10.5); PHOSPHORUS 4.7 mg/dL (2.5-4.9); POTASSIUM 3.2 mMol/L (3.7-5.1)
[2017-02-24 05:05] LABS: ABSOLUTE NEUTROPHIL CT (ANC) 4.5 K/uL (1.8-7.8); BANDED NEUTROPHIL # 0.2 K/uL (0.0-0.1); BANDED NEUTROPHILS % 2 %; LYMPHOCYTE # 2.3 K/uL (0.8-4.0); LYMPHOCYTE % 28 %; SEGMENTED NEUTROPHIL # 4.4 K/uL (1.8-7.8); SEGMENTED NEUTROPHIL % 53 %
--- NOTE | 2017-02-24 14:03 | NUR ---
I looked at the chart and pt will need home infusion. I spoke with pt and she is hoping home health can just do it. I explained the Vanco is twice a day and they can do teaching but will not be able to do both doses so she will need to learn along with her sister in law as well if able. I told her other option is outpt but would have to come in twice a day so can see if that would work. She states she can learn and see what it entails and she wants to get out of the hospital. Looking like Wednesday for discharge date. I did notify Ritesh RIVERA and she will look into the Vanco and I also called our pharmacists to see about moving the time up a little bit or not. I did call Vicki Nevarez and she stated it is just the vanco and the zosyn will be completed on Wednesday.
--- NOTE | 2017-02-24 17:13 | NUR ---
PATIENT IS AAOX3. SHE MOVES ALL EXTREMITITES AND FOLLOWS COMMANDS. SHE IS UPBEAT ABOUT POSSIBLY GETTING OUT THE HOSPITAL THIS WEEK BUT WORRIED ABOUT TRYING TO GET EXTENDED MEDICAL LEAVE FROM HER JOB. SHE WAS ON 2L THIS MORNING AND HAS WEENED DOWN TO 1L THIS AFTERNOON. SHE SHOWS NO SIGHS OF SOB OR ST. PUT IN ORDERS FOR HER TO GET A PICC LINE SO SHE CAN RECEIVED HER ANTIBIOTICS AT HOME. WILL BE PLACED TOMORROW. PATIENT IS ON REGULAR DIET AND HAS EATEN 100% OF MEALS. SHE VOIDS TO URINAL. UOP HAS SLOWED DOWN SINCE THE LAST 24 HOUR OUTPUT OF OVER 6000ML. SHE HAS HAD A LOOSE BOWEL MOVEMENT TODAY X2. SHE HAS DENIED ANY PAIN TODAY. SHE HAS TAKEN HER MEDS WHOLE WITH WATER. SHE DOES HAS SOME EDEMA AND HAS BEEN AFEBRILE ALL DAY. SHE RECEIVED POTASSIUM REPLACEMENT THIS MORNING BY IV AND PO.
--- NOTE | 2017-02-25 04:38 | NUR ---
Significant Event: Patient alert and oriented x3. SBP 108-143. All other vital signs stable. On RA-2L O2 per NC with sleep. No complaints of pain. Bilateral lower leg edema worsening throughout shift. Elevating legs. Lung sounds clear throughout. O2 demand stable. Up with stand-by assist. Uses sternal precautions well. Good uop. Calm and cooperative with all cares. Follow up: PICC placement today
[2017-02-25 07:39] LABS: ALBUMIN 2.9 gm/dL (3.5-5.0); ANION GAP 12.7 (10.0-19.0); CALCIUM 8.4 mg/dL (8.5-10.5); PHOSPHORUS 3.6 mg/dL (2.5-4.9); POTASSIUM 3.7 mMol/L (3.7-5.1)
--- NOTE | 2017-02-25 11:43 | NUR ---
Supportive visit with pt this am. She states she spoke with her sister in law and will try the home infusion first. I explained I will udpate Reyna RIVERA but thinking she will leave in the am so they can do teaching with the 1100 dose of antibiotics. At this time denies needs.
--- NOTE | 2017-02-25 17:05 | NUR ---
Significant Event: pt weaned to room air. PICC line inserted rac this afternoon. Pt went outside with therapy today. BUmex both doses given, even though sbp went to 90s. GOod UOP. No c/o pain. Pt up self to bathroom ok. Kcl 40 iv given. Follow up:
[2017-02-26 04:11] LABS: ALBUMIN 3.3 gm/dL (3.5-5.0); ANION GAP 10.6 (10.0-19.0); CREATININE 1.3 mg/dL (0.5-1.1); PHOSPHORUS 3.9 mg/dL (2.5-4.9); POTASSIUM 3.6 mMol/L (3.7-5.1)
--- NOTE | 2017-02-26 04:41 | NUR ---
Significant event: A/O x 3. Up in room by self. on room air VSS. PICC line to right mid arm. Vanco trough to be drawn before the 10 o'clock vanco dose is hung. No c/o pain throughout shift.
[2017-02-26] MEDS ORDERED: VANCO 750750 MG/250 IVP (08:18)
[2017-02-26] MEDS ORDERED: LOPRESSOR25 MG PO (08:25)
[2017-02-26] MEDS ORDERED: ALDACTONE25 MG PO (08:32)
--- NOTE | 2017-02-26 11:30 | NUR ---
Spoke to her nurse this a.m. and she says plans have changed and patient to get a.m. dose of ATB here. Called and talked to Ritesh with [facility] and she says patient had trough this a.m. and [place] did not want to send out IV ATB until after reviewing that. She says med to be given at 1000 and [facility] will go and do teaching tonight at 2200. Notified now that trough was high and ATB dosage was changed and will just be given once a day. Talked to patient and updated her. She is glad it is once a day. Told her [facility] will be coming to talk to her about time [facility] will be coming out tomorrow. She will be going home today and is staying in [place] with her APRIL. Denies other needs at this time.
--- NOTE | 2017-02-26 13:17 | NUR ---
Patient dismissed to home with home health and home infusion. Patient denies question or concern of dismissal. Verbalizes understanding of meds and changes to meds. Verbalizes understanding of PICC line and care of. HF education complete. Jonna PICC RN up to assess PICC line d/t patient c/o tenderness to site. Dr Isaac also up to assess line. Both state patient has a hematoma just distal to insertion site and it remains ok to use. Flushes well with good blood return. Advised patient to apply cold packs to PICC site. ROBIN horvath'd.
== END 2017-02-26 12:25 | disposition home health service (06) | DRG 871 ==
LOC: GMED 16:28 → GPCU 18:34
PROVIDERS: Emergency Medicine; Nurse Practitioner Women's Health; Thoracic Surgery (Cardiothoracic Vascular Surgery); ADMIT Thoracic Surgery (Cardiothoracic Vascular Surgery)
PROC: 0W9B3ZZ Drainage of Left Pleural Cavity, Percutaneous Approach (ICD-10-PCS; principal; 2017-02-20)
PROC: 30233N1 Transfusion of Nonautologous Red Blood Cells into Peripheral Vein, Percutaneous Approach (ICD-10-PCS; 2017-02-21)
PROC: 0W9B3ZZ Drainage of Left Pleural Cavity, Percutaneous Approach (ICD-10-PCS; 2017-02-22)
PROC: 02HV33Z Insertion of Infusion Device into Superior Vena Cava, Percutaneous Approach (ICD-10-PCS; 2017-02-25)
DX: A41.9 Sepsis, unspecified organism (principal); I50.33 Acute on chronic diastolic (congestive) heart failure; J90 Pleural effusion, not elsewhere classified; I95.9 Hypotension, unspecified; I27.2 Other secondary pulmonary hypertension; I82.411 Acute embolism and thrombosis of right femoral vein; I82.431 Acute embolism and thrombosis of right popliteal vein; I82.4Z1 Acute embolism and thrombosis of unspecified deep veins of right distal lower extremity; I82.492 Acute embolism and thrombosis of other specified deep vein of left lower extremity; Z95.2 Presence of prosthetic heart valve; Z86.711 Personal history of pulmonary embolism; D64.9 Anemia, unspecified; Z79.01 Long term (current) use of anticoagulants; Z79.82 Long term (current) use of aspirin; K21.9 Gastro-esophageal reflux disease without esophagitis
CPT/HCPCS: C1751; G0009; J1644; J1940; J2001; J2250; J2405; J2543; J3010; J3370; J3480; J7030; J7040; J7050; J7121; P9016; P9045; Q9967

== ENCOUNTER → 2017-03-02 | Outpatient (CLI) | payer OTHER ==
[~2017-03-02] MED LIST changes: +ALDACTONE25 MG PO; +LOPRESSOR25 MG PO; +VANCO 750750 MG/250 IVP
== END ==
LOC: LHHL 09:31
DX: A41.89 Other specified sepsis (principal)